=== PATIENT | male | born 1940 | race Caucasian/White ===

== ENCOUNTER 2017-04-03 07:53 | Emergency (ER) | payer OTHER ==
[2017-04-03 08:04] VITALS: BP 158/67
--- NOTE | 2017-04-03 08:22 | UC ---
General HPI - HPI Summary HPI Summary: BROUGHT TO BY . UNABLE TO GET OUT OF CAR WITHOUT ASSISTANCE. PT IN BATHROBE AND UNDERWEAR ONLY. PER HAS BEEN IN BED FOR THE PAST 2 DAYS. HAS NOT HAD ANYTHING TO EAT OR DRINK IN THAT TIME. FEVER 102 YESTERDAY. IS WEAK AND TIRED AND VOMITING. STARTED SELF CATHING LAST WEEK AND REPORTS NO URINE RETURN SINCE LAST NIGHT. - History of Current Complaint Chief Complaint: UCGeneralIllness Stated Complaint: VOMITING Time Seen by Provider: 04/03/17 08:13 Hx Obtained From: Patient, Family/Network Security Consultant - Onset/Duration: Gradual Onset, Lasting Days, Still Present Timing: Constant Onset Severity: Moderate Current Severity: Moderate Pain Intensity: 0 Associated Signs & Symptoms: Positive: Headache, Vomiting, Weakness - Allergy/Home Medications Allergies/Adverse Reactions: Allergies Allergy/AdvReac Type Severity Reaction Status Date / Time No Known Allergies Allergy Verified 04/03/17 08:11 Home Medications: Home Medications Clindamycin Phosphate (Topical [Clindagel] BID 04/03/17 [History] Cyanocobalamin INJ * [Vitamin B12 INJ *] 1,000 mcg 04/03/17 [History] Diclofenac Sodium EC TAB* [Voltaren EC TAB*] 50 mg PO TID 04/03/17 [History Confirmed 04/03/17] Ferrous Gluconate TAB* [Fergon TAB*] 1 tab PO DAILY 04/03/17 [History Confirmed 04/03/17] Fluocinonide 0.05% CREAM(NF) BID 04/03/17 [History] Fluoxetine HCl [Prozac] 40 mg PO DAILY 04/03/17 [History Confirmed 04/03/17] Lactic Acid (Ammonium Lactate) [Ammonium Lactate] BID 04/03/17 [History] PMH/Surg Hx/FS Hx/Imm Hx Cardiovascular History: Cardiac Disease, Hypertension Other History Of: Anticoagulant Therapy - PLAVIX - Surgical History Surgical History: Yes Surgery Procedure, Year, and Place: stent. knee - Family History Known Family History: Positive: Hypertension - Social History Alcohol Use: Daily Substance Use Type: None Smoking Status (MU): Never Smoked Tobacco Review of Systems Constitutional: Fever, Fatigue Respiratory: Negative Cardiovascular: Negative Gastrointestinal: Vomiting Motor: Weakness Neurological: Headache, Weakness All Other Systems Reviewed And Are Negative: Yes Physical Exam Triage Information Reviewed: Yes Appearance: No Pain Distress, Ill-Appearing - MOD/SEVERE Vital Signs: Initial Vital Signs Temp 101.5 F 04/03/17 08:01 Pulse 88 04/03/17 08:01 Resp 18 04/03/17 08:01 BP 158/67 04/03/17 08:01 Pulse Ox 99 04/03/17 08:01 Eyes: Positive: Conjunctiva Clear ENT: Positive: Hearing grossly normal Neck: Positive: Supple Respiratory: Positive: Lungs clear, No respiratory distress, No accessory muscle use Cardiovascular: Positive: RRR Musculoskeletal: Positive: No Edema Neurological: Positive: Lethargic - EASILY ROUSES TO VOICE Skin: Negative: rashes Course/Dx - Differential Dx - Multi-Symptom Provider Diagnoses: GENERALIZED WEAKNESS, FEVER - SUSPECT SEPSIS - Physician Notifications Discussed Patient Care With: Musa Cristobal - [facility] Time Discussed With Above Provider: 08:15 Instructed by Provider To: Will See In ED Discharge - Discharge Plan Condition: Stable Disposition: TRANS HIGHER LVL OF CARE FAC Referrals: Ata Neville MD [Primary Care Provider] -
[2017-04-03] MEDS ORDERED: NS 0.9% 1000 ML* 1,000 ML IV SCH (08:30)
== END 2017-04-03 08:21 | disposition short-term general hospital (02) ==
LOC: UCEAST 07:53
DX: R50.9 Fever, unspecified (principal); R53.1 Weakness; I10 Essential (primary) hypertension; I51.9 Heart disease, unspecified
CPT/HCPCS: 96360; 99213; G0463

== ENCOUNTER 2017-04-03 08:26 | Inpatient (IN) | payer MEDICARE, OTHER ==
[2017-04-03] MEDS ORDERED: cefTRIAXone(*) 1 GM in NS 0.9% 50 ML* 50 ML IVPB ONE (08:43)
--- NOTE | 2017-04-03 09:02 | RAD ---
HISTORY: Fever COMPARISONS: June 05, 2010 VIEWS: 1: frontal portable view of the chest at 8:50 AM FINDINGS: LINES AND TUBES: None. CARDIOMEDIASTINAL SILHOUETTE: The cardiomediastinal silhouette is normal for portable technique. PLEURA: The costophrenic angles are sharp. No pleural abnormalities are noted. LUNG PARENCHYMA: The lungs are clear. ABDOMEN: The upper abdomen is clear. There is no subphrenic gas. BONES AND SOFT TISSUES: No bone or soft tissue abnormalities are noted. IMPRESSION: NO ACTIVE CARDIOPULMONARY DISEASE.
[2017-04-03 09:39] LABS: Hematocrit 36 % (42-52); Hemoglobin 12.3 g/dl (14.0-18.0); Mean Corpuscular HGB Conc 35 g/dl (31-36); Mean Corpuscular Hemoglobin 30 pg (27-31); Mean Corpuscular Volume 87 fL (80-94); Mean Platelet Volume 9 um3 (7.4-10.4); Red Blood Count 4.11 10^6/ul (4.0-5.4); Red Cell Distribution Width 13 % (10.5-15); White Blood Count 13.2 10^3/ul (3.5-10.8)
[2017-04-03 09:51] LABS: Albumin 3.4 g/dL (3.2-5.2); BUN/Creatinine Ratio 16.5 (8-20); Calcium 8.2 mg/dL (8.6-10.3); EGFR African American 84.6 (>60); EGFR Non-African American 65.8 (>60); Potassium 3.2 mmol/L (3.5-5.0); Total Bilirubin 0.8 mg/dL (0.2-1.0); Total Protein 6.4 g/dL (6.4-8.9)
[2017-04-03 09:57] LABS: Troponin I 0.04 ng/mL (<0.04)
[2017-04-03 10:02] LABS: Urine Bacteria 1+ (Absent); Urine Bilirubin Negative (Negative); Urine Glucose Negative (Negative); Urine Nitrite Negative (Negative)
[2017-04-03] MEDS: NS 0.9% 1000 ML* 2,000 ML IV ONE ×2 (11:17→15:30)
[2017-04-03] MEDS ORDERED: LORazepam TAB(*) 0.5 MG PO PRN (11:45)
[2017-04-03] MEDS ORDERED: Potassium Chlor TAB* 20 MEQ TAB.ER PO ONE (11:57)
[2017-04-03] MEDS ORDERED: GENTAMICIN ADULT IVPB ONE ×5 (12:13→13:00)
[2017-04-03] MEDS ORDERED: NS 0.9% IVPB ONE ×5 (12:13→13:00)
[2017-04-03] MEDS: Acetaminophen TAB* 325 MG PO PRN ×2 (13:40→20:34)
[2017-04-03] MEDS: Carvedilol TAB* 6.25 MG PO SCH ×2 (14:05→20:29)
[2017-04-03] MEDS: Aspirin Low Dose CHEW TAB* 81 MG PO SCH (14:06)
[2017-04-03] MEDS ORDERED: Iohexol 300* (CONTRAST) 10 ML SDV IV ONE (15:04)
[2017-04-03] MEDS: NS 0.9% 1000 ML* 1,000 ML IV SCH ×2 (15:27→16:36)
--- NOTE | 2017-04-03 16:22 | HP ---
ATTENDING PHYSICIAN ADDENDUM NOW INCLUDED ON THIS REPORT CC: Dr. Ata Neville* HISTORY AND PHYSICAL: DATE OF ADMISSION: 04/03/17 PRIMARY CARE PROVIDER: Dr. Ata Neville. ATTENDING PHYSICIAN WHILE IN THE HOSPITAL: Jazmín Acharya MD * (report dictated by Franck Canchola NP) CHIEF COMPLAINT: 1. Weakness. 2. Nausea. 3. Not feeling well. HISTORY OF PRESENTING ILLNESS: Mr. Mccann is a 76-year-old male patient who came into the ER today stating that recently last week he was at his primary urologist's office in [place]. According to the patient's description, this sounded like he was having postvoid residuals. We will try to get the records from the office. He states he was told then to start straight cathing which he started, he has done this in the past. He went to a kindergarten class on Thursday and then he noticed Thursday, Thursday and of this week he just started not feeling well. He was having chills. He was having rigors. He was noticing that he was having to get up in the middle of the night and pee. He still continued to straight cath himself, and he also was complaining of having some nasal congestion, but no cough, no chest pain, no shortness of breath. He has said that his appetite has been down. He just has not been feeling good. He states that he has had again no chest pain or any coughing or shortness of breath. The patient went to the urgent care today, it was noted that he had a significantly elevated temperature of 102 and he was immediately transferred to the hospital for further evaluation. Here in the ED, it was noted that he had an elevated troponin and in addition to this, it was noted that his white count was elevated. It was noted that he had a mildly elevated troponin and his urine appeared to be dirty. Because of these findings, we were asked to evaluate for admission. PAST MEDICAL HISTORY: Significant for: 1. Hypertension. 2. Hyperlipidemia. 3. Depression. 4. Anxiety. 5. CAD. 6. BPH. 7. TIA. 8. History of CORBIN. PAST SURGICAL HISTORY: He has had knee arthroscopy. He has had deviated septum repair and he has had heart catheterization with o1 stent. HOME MEDICATIONS: According to the list that we were able to obtain includes: 1. Miconazole nitrate 2% topically b.i.d. 2. Ativan 0.25 mg p.o. b.i.d. as needed. 3. Wellbutrin 100 mg p.o. b.i.d. 4. Proscar 5 mg p.o. daily. 5. Colace 100 mg p.o. daily. 6. Flomax 0.8 mg p.o. daily. 7. Potassium 20 mEq p.o. daily. 8. Lisinopril plus hydrochlorothiazide 2 tablets p.o. b.i.d. 9. Prozac 40 mg daily. 10. Fluocinonide 1 application topically b.i.d. as needed. 11. Ferrous gluconate 325 mg p.o. daily. 12. Voltaren EC 50 mg p.o. t.i.d. as needed. 13. B12 1000 mcg IM monthly. 14. Vitamin D 2000 units p.o. daily. 15. Coreg 12.5 mg p.o. b.i.d. 16. Lipitor 40 mg p.o. daily. ALLERGIES TO MEDICATIONS: Include no known drug allergies. FAMILY HISTORY: Mother had a history of AAA. Father had a history of multiple myeloma. SOCIAL HISTORY: He is a former smoker, he quit in 1970. He occasionally drinks beer. Surrogate decision maker is his . REVIEW OF SYSTEMS: There is a documented fever here. He denied any weight change. There is no double vision. He denied having any ear discharge. There was no rhinorrhea. There is no sore throat. He does admit to having some nasal congestion. Denies any abdominal pain. He did admit to having some nausea and vomiting. He does admit to having difficulty with urination, but no dysuria. He has been straight cathing. He does admit to having some urgency. No lightheadedness. No loss of consciousness. No pruritus and no skin ulcerations. Review of 14 systems completed, all others negative. PHYSICAL EXAMINATION GENERAL: At this time, Mr. Mccann is a 76-year-old male patient. He appears to be well nourished, well developed. He is sitting in the ER stretcher. He does not appear to be in any acute distress. VITAL SIGNS: Blood pressure 146/70, pulse 77, respirations 22, O2 sat 94%, temperature 100.5. HEENT: Head atraumatic. Eyes: EOMs are intact. Sclerae anicteric. Not pale. Throat: Oral mucosa appears to be dry. No oropharyngeal erythema. NECK: Supple. HEART: Sounds S1, S2. Regular rate and rhythm. He does have a grade 2-3 murmur heard in the aortic listening area. ABDOMEN: Soft, flat, nontender. There is no CVA tenderness. He had bowel sounds in all 4 quadrants. EXTREMITIES: Pulses 2+ throughout. He had no peripheral edema. He is moving all 4 extremities with 5/5 strength. NEUROLOGIC: The patient is awake. He is alert. He is oriented x3. His market risk manager were equal. No gross focal deficits. SKIN: Intact. LABORATORY DATA: Labs today reveal WBC of 13.2, RBC 4.11, hemoglobin 12.3, hematocrit 36, platelet count of 126,000. INR 1.14. His sodium is 131, potassium 3.2, chloride 99, bicarb 24, BUN 18, creatinine 1.09, glucose 125, lactic 0.8, calcium 8.2, total bilirubin 0.8, AST 16, ALT 11, alk phos 46, troponin 0.04. Albumin 3.4. Urine showed 2+ protein, 2+ blood, positive urobilinogen, trace leukocyte esterase, 2+ WBC, 3+ RBC, and 1+ bacteria. He had a chest x-ray obtained today under my review, I did not appreciate any acute infiltrates. Radiology read it as no active cardiopulmonary disease. Interestingly, his EKG today did show normal sinus rhythm, he does have PVC's. He does have some very subtle depression in V4, 5 and 6, which is new compared to his previous EKG's. His last EKG is 7 years old. Old medical records were reviewed. ASSESSMENT AND PLAN: Mr. Mccann is a 76-year-old male patient with multiple medical problems coming into the ER today with complaints of weakness, found to have fever, found to have a white count and concern for sepsis. Hospitalist service was asked to evaluate for admission. He will be admitted under inpatient status for: 1. Sepsis. Again, source at this point most likely is urinary, could be viral still though, but with his UA being abnormal in the setting of him recent straight cathing, I would like to treat him with Rocephin IV and give him a loading dose of gentamicin. I did touch base with Urology, they recommended leaving his Bhatti catheter in until he completes his course of antibiotics and then having him follow up with his primary urologist. I am also concerned though on exam he does have a murmur. He has had some mitral sclerosis in the past. I asked the patient if he has been ever told he had a murmur, he said no. I would like to get blood cultures, if those are positive, then I would obviously get a ID consult, and I am already ordering an echo as well to see if there was any vegetations. My plan would be obviously to continue the Rocephin as I truly think that his primary source is probably urine. Check a flu swab as well, I am going to get a CT of the abdomen and pelvis to make sure that there is not any signs of pyelonephritis as well, and we will continue to hydrate him. He has gotten 2 L wide open down here, he has been ahmadi cultured and we will continue normal saline at 100 an hour. 2. Elevated troponin with ST depression. Again, the ST depression I do not know if it is new or not. It is probably in the setting of demand ischemia from the patient being septic. I am going to cycle his troponins, we are getting the echo. Obviously if the troponins continue to elevate, I will get input from Cardiology, but he is not having any active cardiac symptoms, no chest pain. I will put him on telemetry. He is on a beta-beronica, statin. I will add aspirin therapy and will continue to follow him closely. 3. History of coronary artery disease. Again, at this point he is on beta- beronica and start the aspirin and we will go ahead and continue the statin therapy and continue the beta-beronica. 4. Hypertension. We will go ahead and continue his meds as prescribed with the exception of his hydrochlorothiazide as this is probably causing the hypokalemia and mild hyponatremia and we will continue the lisinopril and we will follow. 5. Depression and anxiety. Continue meds as prescribed. 6. History of benign prostatic hypertrophy, continue his Flomax and Proscar. 7. History of transient ischemic attack. He is on a statin. I am also going to continue aspirin. 8. History of obstructive sleep apnea, I have ordered a CPAP. 9. DVT prophylaxis. He will be placed on heparin subcu. 10. Code status. He is a full code. 11. Fluids, electrolytes, nutrition. He can have a heart healthy diet. TIME SPENT: Time spent on this admission was approximately 70 minutes, greater than half the time spent face to face with patient, obtaining my history and physical, the other half time spent going over the plan of care with the patient , implementing plan of care. I discussed the plan of care with my attending, Dr. Acharya, she is in agreement. FRANCK CANCHOLA NP ADDENDUM: Mr. Mccann is a 76-year-old male with history of BPH who had been utilizing straight catheterization for urinary retention most likely due to enlarged prostate. He had been seeing a urologist in [place]. He presents today complaining of not feeling well with a fever of 102. He is going to be admitted for UTI. He also has a mildly indeterminate troponin of 0.04 and upper respiratory infection, for which flu test is going to be obtained. For further details of the patient's presentation and plan, please see history and physical dictated by Franck Canchola on 04/03/17 with which I agree. JAZMÍN ACHARYA MD [id number]/[facility] #: [id number]/CPS #: [id number] ELKE
--- NOTE | 2017-04-03 16:30 | HP ---
HISTORY AND PHYSICAL:* ADDENDUM: Mr. Mccann is a 76-year-old male with history of BPH who had been utilizing straight catheterization for urinary retention most likely due to enlarged prostate. He had been seeing a urologist in [place]. He presents today complaining of not feeling well with a fever of 102. He is going to be admitted for UTI. He also has a mildly indeterminate troponin of 0.04 and upper respiratory infection, for which flu test is going to be obtained. For further details of the patient's presentation and plan, please see history and physical dictated by Franck Canchola on 04/03/17 with which I agree. [id number]/[facility] #: [id number] MTDD
--- NOTE | 2017-04-03 16:48 | ECHO ---
Patient: NATHALIE BERNARD [facility] Rec#: [id number] : 1940 Date: 04/03/2017 Age: 76y Height: 175.26 cm / 69.0 in Weight: 75.3 kg / 166.0 lbs Sex: M BSA: 1.91 Room#: [facility] Admit Date#: 04/03/2017 Type: Inpatient Referring: Franck Canchola NP Reading: Ottoniel Thompson MD Quality Control Assistant: Heather Pena RDCS CC: Ata Neville MD Transthoracic Echocardiogram Indication: Murmur BP: 146/70 HR: 93 Rhythm: NSR with PVCs Findings History: HTN, HLD, smoker, TIA, CAD with stent. Technical Comments: The study quality is fair. The study is technically limited due to patient body habitus. Completed at 1545. Left Ventricle: The left ventricular chamber size is normal. Mild concentric left ventricular hypertrophy is observed. Global left ventricular wall motion and contractility are within normal limits. There is normal left ventricular systolic function. The estimated ejection fraction is 55-60%. Abnormal left ventricular diastolic filling is observed, consistent with impaired relaxation. Left Atrium: The left atrial chamber size is normal. Right Ventricle: Moderator Band present. The right ventricular cavity size is normal. The right ventricular global systolic function is normal. Right Atrium: The right atrium is mild to moderately dilated. Aortic Valve: The aortic valve is trileaflet. The aortic valve leaflets are moderately thickened. There is mild to moderate aortic regurgitation. There is borderline aortic stenosis present. Mitral Valve: There is mitral annular calcification. The mitral valve leaflets are moderately thickened. There is mild to moderate mitral regurgitation. Tricuspid Valve: The tricuspid valve leaflets are normal. There is trace to mild tricuspid regurgitation. The right ventricular systolic pressure is estimated at 29 mmHg. No pulmonary hypertension is noted. Pulmonic Valve: The pulmonic valve appears normal. There is no evidence of pulmonic regurgitation. There is no pulmonic stenosis. Pericardium: There is no significant pericardial effusion. Aorta: There is no dilatation of the ascending aorta. There is no dilatation of the aortic arch. The aortic root is normal in size. Pulmonary Artery: The main pulmonary artery appears normal. Venous: The inferior vena cava is dilated. There is an approximate 50% respiratory change in the inferior vena cava dimension. Conclusions There is normal left ventricular systolic function. The estimated ejection fraction is 55-60%. Global left ventricular wall motion and contractility are within normal limits. The left ventricular chamber size is normal. Mild concentric left ventricular hypertrophy is observed. Abnormal left ventricular diastolic filling is observed, consistent with impaired relaxation. The right atrium is mild to moderately dilated. There is mild to moderate aortic regurgitation. There is mild to moderate mitral regurgitation (MR). Since the prior echocardiogram completed 03/07/10, pertinent change is prior MR graded trace. Measurements Name Value Normal Range RVIDd (AP) 2D 3.7 cm (0.9 - 2.6) RVDdMajor (2D) 3.9 cm (2.2 - 4.4) RAd ISD 4CH 5.6 cm (3.4 - 4.9) RA (A4C)W 4.7 cm (2.9 - 4.6) IVSd (2D) 1.2 cm (0.6 - 1) LVPWd (2D) 1.2 cm (0.6 - 1) LVIDd (2D) 5.4 cm (3.6 - 5.4) LVIDs (2D) 3.4 cm - LV FS (2D) 36 % (25 - 45) Aortic Annulus 2.9 cm (1.4 - 2.6) Ao root diameter (2D) 3.3 cm (2.1 - 3.5) Ascending Ao 3.4 cm (2.1 - 3.4) Aortic arch 2.2 cm (1.8 - 3.4) LAd ISD 4CH 5.1 cm (2.9 - 5.3) LA ISD 4CH W 4.2 cm (2.5 - 4.5) Name Value Normal Range LA ESV SP 4CH (A/L) 72 ml - LA ESV SP 2CH (A/L) 52 ml - LA ESV BP (A/L) 65 ml - LA ESV BP (A/L) index 34 ml/m2 - LA ESV SP 4CH (MOD) 65 ml - LA ESV SP 2CH (MOD) 50 ml - Name Value Normal Range MV E-wave Vmax 0.79 m/sec - MV deceleration time 161.84 msec - MV A-wave Vmax 1.24 m/sec - MV E:A ratio 0.63 ratio - LV septal e' Vmax 0.04 m/sec - LV lateral e' Vmax 0.05 m/sec - LV E:e' septal ratio 19.75 ratio - LV E:e' lateral ratio 15.8 ratio - Name Value Normal Range AV Vmax 1.99 m/sec - AV VTI 38.56 cm - AV peak gradient 15.96 mmHg - AV mean gradient 10.03 mmHg - LVOT Vmax 0.99 m/sec - LVOT VTI 15.36 cm - LVOT peak gradient 3.96 mmHg - LVOT mean gradient 2.19 mmHg - DOI (VTI) 0.4 ratio - JA (continuity Vmax) 1.6 cm2 - AR PHT 450.6 msec - AR peak gradient 50.5 mmHg - CANDIS Vmax 0.73 m/sec - Name Value Normal Range TR Vmax 2.3 m/sec - TR peak gradient 21 mmHg - RAP 15 mmHg - RVSP 29 mmHg - IVC diameter 2.6 cm - Name Value Normal Range PV Vmax 0.72 m/sec - PV peak gradient 2.1 mmHg -
[2017-04-03] MEDS: Heparin VIAL(*) 5000 UNITS/ML VIAL (FIVE THOUSAND) SUBCUT SCH ×2 (17:49→20:28)
--- NOTE | 2017-04-03 18:28 | RAD ---
INDICATION: Nausea, sepsis, back pain. COMPARISON: There are no prior studies available for comparison. TECHNIQUE: A CT scan of the abdomen and pelvis was performed with intravenous and oral contrast following intravenous injection of 100 ml of Omnipaque 300 nonionic contrast. Contiguous axial sections were obtained from the lung bases through the symphysis pubis. Images were reconstructed in the coronal and sagittal planes. FINDINGS: The lung bases are clear. There is a trace left pleural effusion. The liver and spleen are mildly enlarged without significant focal abnormality. No calcified gallstones are seen. The pancreas appears to be within normal limits. The kidneys and adrenal glands are normal in size. There is prominent bilateral perinephric stranding. There is slightly heterogeneous enhancement of the kidneys. These findings are suggestive of pyelonephritis. No hydronephrosis is seen. There is a small cyst present in the upper pole of the right kidney measuring 1 cm in size. There is a Bhatti catheter within the urinary bladder. The wall of the urinary bladder is diffusely thickened suggestive of cystitis. The aorta is normal in caliber with mild calcific plaque present. No significant enlarged retroperitoneal lymph nodes are seen. The stomach, small and large bowel appear nondistended. The appendix is within normal limits. There is moderate sigmoid diverticulosis without evidence for diverticulitis. No free intraperitoneal air or fluid is seen. No significant focal osseous abnormality is seen. IMPRESSION: 1. TRACE LEFT PLEURAL EFFUSION. 2. FINDINGS SUSPICIOUS FOR CYSTITIS AND BILATERAL PYELONEPHRITIS. RECOMMEND CLINICAL CORRELATION. 3. MILD HEPATOSPLENOMEGALY.
--- NOTE | 2017-04-03 18:33 | ED ---
Eddie Allan Angela, scribed for Musa Cristobal MD on 04/03/17 at 0847 . HPI Febrile Illness - HPI Summary HPI Summary: This pt is a 76 y/o male accompanied by his [facility]/o fever and weakness x2 days. Pt notes that 3 days ago he began to have chills and didn' t feel well. For the last 2 days he has been in bed all day. Pt notes that he catherterized himself yesterday and was able to get some urine out. This morning the pt wasn't able to get urine out. Per , pt has had decreased PO fluids. He also endorses a headache today and pressure on his penis. - History of Current Complaint Chief Complaint: EDFever Time Seen by Provider: 04/03/17 08:38 Hx Obtained From: Patient, Family/[employer] - Onset/Duration: Started Days Ago Timing: Lasting Days Pain Intensity: 0 Associated Signs and Symptoms: Chills, Headache, Weakness - generalized, Other: - difficulty urinating - Allergy/Home Medications Allergies/Adverse Reactions: Allergies Allergy/AdvReac Type Severity Reaction Status Date / Time No Known Allergies Allergy Verified 04/03/17 08:38 Home Medications: Home Medications Carvedilol TAB* [Coreg TAB*] 12.5 mg PO BID 04/03/17 [History Confirmed 04/03/17 ] Cyanocobalamin INJ * [Vitamin B12 INJ *] 1,000 mcg IM MONTHLY 04/03/17 [History Confirmed 04/03/17] Diclofenac Sodium EC TAB* [Voltaren EC TAB*] 50 mg PO TID PRN 04/03/17 [History Confirmed 04/03/17] Docusate CAP* [Colace Cap*] 100 mg PO DAILY 04/03/17 [History Confirmed 04/03/17 ] FLUoxetine CAP* [PROzac CAP*] 40 mg PO DAILY 04/03/17 [History Confirmed ] Ferrous Gluconate TAB* [Fergon TAB*] 325 mg PO DAILY 04/03/17 [History Confirmed 04/03/17] Finasteride TAB* [Proscar TAB*] 5 mg PO DAILY 04/03/17 [History Confirmed ] Fluocinonide 0.05% CREAM(NF) 1 applic TOPICAL BID PRN 04/03/17 [History Confirmed 04/03/17] LORazepam TAB(*) [Ativan 0.5 MG TAB (*)] 0.25 mg PO BID PRN 04/03/17 [History Confirmed 04/03/17] Lisinopril/HCTZ 20/12.5(NF) [Zestoretic 20/12.5(NF)] 2 tab PO DAILY 04/03/17 [ History Confirmed 04/03/17] Miconazole Nitrate (Topical) [Micro Guard] 2 % TOPICAL BID 04/03/17 [History Confirmed 04/03/17] Potassium Chlor TAB* [Klor Con ER TAB*] 20 meq PO DAILY 04/03/17 [History Confirmed 04/03/17] buPROPion SR TAB* [Wellbutrin SR TAB*] 100 mg PO BID 04/03/17 [History Confirmed 04/03/17] PMH/Surg Hx/FS Hx/Imm Hx Endocrine/Hematology History: Reports: Hx Anticoagulant Therapy - PLAVIX Cardiovascular History: Reports: Hx Hypertension Respiratory History: Denies: Hx Asthma - Surgical History Surgery Procedure, Year, and Place: stent. knee Infectious Disease History: No Infectious Disease History: Denies: Traveled Outside the [place] in Last 30 Days - Family History Known Family History: Positive: Hypertension - Social History Alcohol Use: Daily Substance Use Type: Reports: None Smoking Status (MU): Never Smoked Tobacco Review of Systems Positive: Fever, Chills Eyes: Negative ENT: Negative Negative: Chest Pain Negative: Shortness Of Breath, Cough Negative: Abdominal Pain Positive: other - difficulty urinating Skin: Negative Positive: Headache All Other Systems Reviewed And Are Negative: Yes Physical Exam - Summary Physical Exam Summary: VITAL SIGNS: Reviewed. GENERAL: Patient is a well-developed and nourished male who is lying comfortable in the stretcher. Patient is not in any acute respiratory distress. HEAD AND FACE: No signs of trauma. ~No ecchymosis, hematomas or skull depressions. No sinus tenderness. EYES: PERRLA, EOMI x 2, No injected conjunctiva, no nystagmus. EARS: Hearing grossly intact. Ear canals and tympanic membranes are within normal limits. MOUTH: Oropharynx within normal limits. NECK: Supple, trachea is midline, no adenopathy, no JVD, no carotid bruit, no c- spine tenderness, neck with full ROM. CHEST: Symmetric, no tenderness at palpation LUNGS: Clear to auscultation bilaterally. No wheezing or crackles. CVS: Regular rate and rhythm, S1 and S2 present, no murmurs or gallops appreciated. ABDOMEN: Soft, non-tender. No signs of distention. No rebound no guarding, and no masses palpated. Bowel sounds are normal. EXTREMITIES: FROM in all major joints, no edema, no cyanosis or clubbing. NEURO: Alert and oriented x 3. No acute neurological deficits. Speech is normal and follows commands. SKIN: Dry and warm Triage Information Reviewed: Yes Vital Signs On Initial Exam: Initial Vitals Temp Pulse Resp BP Pulse Ox 101.2 F 85 20 160/81 93 04/03/17 08:36 04/03/17 08:36 04/03/17 08:36 04/03/17 08:36 04/03/17 08:36 Vital Signs Reviewed: Yes Diagnostics - Vital Signs Vital Signs Temp Pulse Resp BP Pulse Ox 04/03/17 08:36 101.2 F 85 20 160/81 93 - Laboratory Result Diagrams: 04/03/17 09:10 04/03/17 09:10 Lab Statement: Any lab studies that have been ordered have been reviewed, and results considered in the medical decision making process. - Radiology Chest XR Xray Interpretation: No Acute Changes - IMPRESSIOn: No active cardiopulmonary disease. ED physician has reviewed this radiology report and agrees. Radiology Interpretation Completed By: Radiologist - EKG 1133 Cardiac Rate: NL - 80 bpm EKG Rhythm: Sinus Rhythm Ectopy: PVCs - multiple EKG Interpretation: ST depression in V4, V5, and V6. Course/Dx - Course Assessment/Plan: This pt is a 76 y/o male accompanied by his [facility]/o fever and weakness x2 days. Pt notes that 3 days ago he began to have chills and didn't feel well. For the last 2 days he has been in bed all day. Pt notes that he catherterized himself yesterday and was able to get some urine out. This morning the pt wasn't able to get urine out. Per , pt has had decreased PO fluids. He also endorses a headache today and pressure on his penis. Test results show WBC of 13.2, platelets of 126, without any bands. Sodium is 121, potassium is 3.2, calcium is 8.2, troponin is 0.04. UA is positive for protein, ketones, WBC, and bacteria. Chest XR is negative for an acute pathology. I believe the symptoms are secondary to UTI/sepsis. In the ED course, the pt was given IV fluids and Rocephin to cover for a UTI. Pt denied chest pain, however troponin is elevated. He took his medications this morning including aspirin. I discussed my physical exam findings and results with Dr. Acharya, who accepted the pt for admission. At this point, the pt is hemodynamically stable, alert and oriented x3. - Diagnoses Provider Diagnoses: UTI/sepsis - Provider Notifications Discussed Care Of Patient With: Jazmín Acharya Instructed by Provider To: Other - I discussed the pt's case with Dr. Acharya, who accepted the pt for admission. Discharge - Discharge Plan Condition: Stable Disposition: ADMITTED TO [facility] The documentation as recorded by the Eddie olivier Angela accurately reflects the service I personally performed and the decisions made by me, Musa Cristobal MD.
[2017-04-03] MEDS: Cefepime(*) 2 GM in NS 0.9% 50 ML* 50 ML IVPB SCH (20:03)
[2017-04-03] MEDS: buPROPion SR TAB.SR* 100 MG PO SCH (20:29)
[2017-04-03] MEDS: Ondansetron INJ* 2 MG/ML VIAL IV PRN (20:34)
[2017-04-04] MEDS: Acetaminophen TAB* 325 MG PO PRN ×3 (04:34→20:27)
[2017-04-04] MEDS: Heparin VIAL(*) 5000 UNITS/ML VIAL (FIVE THOUSAND) SUBCUT SCH ×3 (04:34→20:27)
[2017-04-04 05:42] LABS: Hematocrit 33 % (42-52); Hemoglobin 11.5 g/dl (14.0-18.0); Mean Corpuscular HGB Conc 35 g/dl (31-36); Mean Corpuscular Hemoglobin 30 pg (27-31); Mean Corpuscular Volume 86 fL (80-94); Mean Platelet Volume 9 um3 (7.4-10.4); Red Blood Count 3.84 10^6/ul (4.0-5.4); Red Cell Distribution Width 13 % (10.5-15); White Blood Count 11.6 10^3/ul (3.5-10.8)
[2017-04-04 05:45] LABS: Add Diff/Slide Review? Slide Review Added; Comments Flag Yes
[2017-04-04 05:58] LABS: Calcium 7.9 mg/dL (8.6-10.3); EGFR African American 75.7 (>60); EGFR Non-African American 58.9 (>60); Potassium 3.1 mmol/L (3.5-5.0)
[2017-04-04 06:09] LABS: Troponin I 0.07 ng/mL (<0.04)
[2017-04-04] MEDS ORDERED: Potassium Chlor TAB* 20 MEQ TAB.ER PO ONE (07:45)
[2017-04-04] MEDS ORDERED: Lisinopril TAB* 10 MG PO SCH (09:00)
[2017-04-04] MEDS ORDERED: cefTRIAXone VIAL(*) 1,000 MG in NS 0.9% 50 ML* 50 ML IVPB SCH (09:00)
[2017-04-04] MEDS: Cefepime(*) 2 GM in NS 0.9% 50 ML* 50 ML IVPB SCH ×2 (09:12→20:27)
[2017-04-04] MEDS: Ferrous Gluconate TAB* 324 MG TAB PO SCH (09:21)
[2017-04-04] MEDS: Aspirin Low Dose CHEW TAB* 81 MG PO SCH (09:21)
[2017-04-04] MEDS: Atorvastatin* 40 MG TAB PO SCH (09:21)
[2017-04-04] MEDS: Tamsulosin CAP* 0.4 MG PO SCH (09:22)
[2017-04-04] MEDS: FLUoxetine CAP* 20 MG PO SCH (09:22)
[2017-04-04] MEDS: Docusate CAP* 100 MG PO SCH ×2 (09:22→09:41)
[2017-04-04] MEDS: Finasteride TAB* 5 MG PO SCH (09:23)
[2017-04-04] MEDS: buPROPion SR TAB.SR* 100 MG PO SCH ×2 (09:23→20:27)
--- NOTE | 2017-04-04 10:49 | PN ---
Subjective Date of Service: 04/04/17 Interval History: Pt feels much better. Fever and aches resolved Objective Active Medications: Acetaminophen (Tylenol Tab*) 650 mg PO Q4H PRN PRN Reason: FEVER/PAIN Last Admin: 04/04/17 04:34 Dose: 650 mg Aspirin (Aspirin Low Dose Tab*) 81 mg PO DAILY [facility] Last Admin: 04/04/17 09:21 Dose: 81 mg Atorvastatin Calcium (Lipitor*) 40 mg PO DAILY [facility] Last Admin: 04/04/17 09:21 Dose: 40 mg Bupropion HCl (Wellbutrin Sr Tab*) 100 mg PO BID [facility] Last Admin: 04/04/17 09:23 Dose: 100 mg Carvedilol (Coreg Tab*) 12.5 mg PO BID [facility] Last Admin: 04/03/17 20:29 Dose: 12.5 mg Docusate Sodium (Colace Cap*) 100 mg PO DAILY [facility] Last Admin: 04/04/17 09:41 Dose: Not Given Ferrous Gluconate (Fergon Tab*) 325 mg PO DAILY [facility] Last Admin: 04/04/17 09:21 Dose: 325 mg Finasteride (Proscar Tab*) 5 mg PO DAILY [facility] Last Admin: 04/04/17 09:23 Dose: 5 mg Fluoxetine HCl (Prozac Cap*) 40 mg PO DAILY [facility] Last Admin: 04/04/17 09:22 Dose: 40 mg Heparin Sodium (Porcine) (Heparin Vial(*)) 5,000 units SUBCUT Q8HR [facility] Last Admin: 04/04/17 04:34 Dose: 5,000 units Cefepime HCl 2 gm/ Sodium (Chloride) 50 mls @ 100 mls/hr IVPB Q12H [facility] Last Admin: 04/04/17 09:12 Dose: 100 mls/hr Lorazepam (Ativan Tab(*)) 0.25 mg PO BID PRN PRN Reason: ANXIETY Ondansetron HCl (Zofran Inj*) 4 mg IV Q6H PRN PRN Reason: NAUSEA Last Admin: 04/03/17 20:34 Dose: 4 mg Potassium Chloride (Klor Con Er Tab*) 20 meq PO DAILY [facility] Tamsulosin HCl (Flomax Cap*) 0.8 mg PO DAILY [facility] Last Admin: 04/04/17 09:22 Dose: 0.8 mg Vital Signs 04/03/17 04/03/17 04/03/17 13:40 16:09 18:32 Temperature 101.9 F 98.0 F 99.9 F Pulse Rate 97 82 80 Respiratory 20 18 20 Rate Blood Pressure 179/84 134/60 149/62 (mmHg) O2 Sat by Pulse 98 95 98 Oximetry 04/03/17 04/03/17 04/03/17 20:00 20:01 23:46 Temperature 102.3 F 98.6 F Pulse Rate 86 65 Respiratory 16 18 16 Rate Blood Pressure 150/65 106/49 (mmHg) O2 Sat by Pulse 98 98 96 Oximetry 04/04/17 04/04/17 04/04/17 04:14 07:39 07:49 Temperature 102.8 F 98.2 F Pulse Rate 81 66 Respiratory 16 20 Rate Blood Pressure 146/66 119/56 (mmHg) O2 Sat by Pulse 97 97 97 Oximetry Oxygen Devices in Use Now: None Appearance: 76 yo M in NAD, AAOx3 Eyes: No Scleral Icterus, PERRLA Ears/Nose/Mouth/Throat: NL Teeth, Lips, Gums, Mucous Membranes Moist Neck: NL Appearance and Movements; NL JVP, Trachea Midline Respiratory: Symmetrical Chest Expansion and Respiratory Effort, Clear to Auscultation Cardiovascular: RRR, - - BLOSSOM at apex 2/6 Abdominal: NL Sounds; No Tenderness; No Distention, No Hepatosplenomegaly Lymphatic: No Cervical Adenopathy Extremities: No Edema, No Clubbing, Cyanosis Skin: No Rash or Ulcers Neurological: Alert and Oriented x 3, NL Muscle Strength and Tone Result Diagrams: 04/04/17 05:26 04/04/17 05:26 Microbiology and Other Data: Microbiology 04/04/17 04:50 Influenza Types A,B Antigen (EMELINA) - Final Nasal Specimen received for Influenza A/B Molecular testing Assess/Plan/Problems-Billing Assessment: 76 yo M with h/o BPH(straight caths), HTN, dyslipidemia presets with UTI and sepsis - Patient Problems (1) Sepsis Comment: present at admission due to b/l pyelonephritis and cystitis Rodriguez in place-d/w pt the need to cont rodriguez at discharge cont Cefepime Awaiting cx (2) HTN (hypertension) Comment: conteolled with Coreg HCTZ/Lisinopril on hold (3) ROSSI (acute kidney injury) Comment: creat at 1.2 -due to sepsis will cont to monitor (4) Mitral regurgitation Comment: moderate on Echo, d/w pt the need for Echo f/u (5) Troponin level elevated Comment: demand due to sepsis no arrythmia noted on telem, will d/c (6) Dyslipidemia Comment: cont lipitor (7) DVT prophylaxis Comment: heparin sc Status and Disposition: inpatient, expected length of stay total>48H
[2017-04-04] MEDS: Carvedilol TAB* 6.25 MG PO SCH ×2 (11:12→20:27)
[2017-04-04] MEDS: Potassium Chlor TAB* 20 MEQ TAB.ER PO SCH (11:12)
[2017-04-04] MEDS: Ondansetron INJ* 2 MG/ML VIAL IV PRN (15:03)
[2017-04-05] MEDS: Acetaminophen TAB* 325 MG PO PRN ×3 (03:35→21:45)
[2017-04-05] MEDS: Heparin VIAL(*) 5000 UNITS/ML VIAL (FIVE THOUSAND) SUBCUT SCH ×3 (05:14→21:49)
[2017-04-05 05:31] LABS: Hematocrit 32 % (42-52); Hemoglobin 11.2 g/dl (14.0-18.0); Mean Corpuscular HGB Conc 35 g/dl (31-36); Mean Corpuscular Hemoglobin 30 pg (27-31); Mean Corpuscular Volume 87 fL (80-94); Mean Platelet Volume 9 um3 (7.4-10.4); Red Blood Count 3.73 10^6/ul (4.0-5.4); Red Cell Distribution Width 13 % (10.5-15); White Blood Count 9.4 10^3/ul (3.5-10.8)
[2017-04-05 05:41] LABS: BUN/Creatinine Ratio 18.1 (8-20); Calcium 8.2 mg/dL (8.6-10.3); EGFR African American 78.7 (>60); EGFR Non-African American 61.2 (>60); Potassium 3.1 mmol/L (3.5-5.0)
[2017-04-05] MEDS ORDERED: Potassium Chlor TAB* 20 MEQ TAB.ER PO ONE (09:07)
[2017-04-05] MEDS: Aspirin Low Dose CHEW TAB* 81 MG PO SCH (09:49)
[2017-04-05] MEDS: Atorvastatin* 40 MG TAB PO SCH (09:49)
[2017-04-05] MEDS: Tamsulosin CAP* 0.4 MG PO SCH (09:50)
[2017-04-05] MEDS: Docusate CAP* 100 MG PO SCH (09:50)
[2017-04-05] MEDS: Ferrous Gluconate TAB* 324 MG TAB PO SCH (09:50)
[2017-04-05] MEDS: Carvedilol TAB* 6.25 MG PO SCH ×2 (09:50→21:46)
[2017-04-05] MEDS: Finasteride TAB* 5 MG PO SCH (09:52)
[2017-04-05] MEDS: FLUoxetine CAP* 20 MG PO SCH (09:52)
[2017-04-05] MEDS: Potassium Chlor TAB* 20 MEQ TAB.ER PO SCH (09:53)
[2017-04-05] MEDS ORDERED: Amoxicillin/Clavulanate TAB* 875 MG PO SCH (10:00)
[2017-04-05] MEDS ORDERED: Ibuprofen TAB* 600 MG PO ONE (10:26)
[2017-04-05] MEDS: buPROPion SR TAB.SR* 100 MG PO SCH ×2 (10:27→21:47)
--- NOTE | 2017-04-05 14:56 | PN ---
Subjective Date of Service: 04/05/17 Interval History: Temp of >102 today in AM, feels generalized weakness Objective Active Medications: Acetaminophen (Tylenol Tab*) 650 mg PO Q4H PRN PRN Reason: FEVER/PAIN Last Admin: 04/05/17 09:58 Dose: 650 mg Aspirin (Aspirin Low Dose Tab*) 81 mg PO DAILY [facility] Last Admin: 04/05/17 09:49 Dose: 81 mg Atorvastatin Calcium (Lipitor*) 40 mg PO DAILY [facility] Last Admin: 04/05/17 09:49 Dose: 40 mg Bupropion HCl (Wellbutrin Sr Tab*) 100 mg PO BID [facility] Last Admin: 04/05/17 10:27 Dose: 100 mg Carvedilol (Coreg Tab*) 12.5 mg PO BID [facility] Last Admin: 04/05/17 09:50 Dose: 12.5 mg Docusate Sodium (Colace Cap*) 100 mg PO DAILY [facility] Last Admin: 04/05/17 09:50 Dose: 100 mg Ferrous Gluconate (Fergon Tab*) 325 mg PO DAILY [facility] Last Admin: 04/05/17 09:50 Dose: 325 mg Finasteride (Proscar Tab*) 5 mg PO DAILY [facility] Last Admin: 04/05/17 09:52 Dose: 5 mg Fluoxetine HCl (Prozac Cap*) 40 mg PO DAILY [facility] Last Admin: 04/05/17 09:52 Dose: 40 mg Heparin Sodium (Porcine) (Heparin Vial(*)) 5,000 units SUBCUT Q8HR [facility] Last Admin: 04/05/17 13:14 Dose: 5,000 units Ampicillin Sodium 2 gm/ Sodium (Chloride) 100 mls @ 200 mls/hr IVPB Q6H [facility] Last Admin: 04/05/17 10:50 Dose: 200 mls/hr Lorazepam (Ativan Tab(*)) 0.25 mg PO BID PRN PRN Reason: ANXIETY Ondansetron HCl (Zofran Inj*) 4 mg IV Q6H PRN PRN Reason: NAUSEA Last Admin: 04/04/17 15:03 Dose: 4 mg Potassium Chloride (Klor Con Er Tab*) 20 meq PO DAILY [facility] Last Admin: 04/05/17 09:53 Dose: 20 meq Tamsulosin HCl (Flomax Cap*) 0.8 mg PO DAILY [facility] Last Admin: 04/05/17 09:50 Dose: 0.8 mg Vital Signs 04/04/17 04/04/17 04/04/17 15:09 19:00 20:00 Temperature 101.2 F Pulse Rate 75 Respiratory 20 20 Rate Blood Pressure 139/62 (mmHg) O2 Sat by Pulse 100 98 Oximetry 04/04/17 04/04/17 04/05/17 20:19 23:23 03:47 Temperature 98.8 F 98.5 F 100.0 F Pulse Rate 63 59 71 Respiratory 20 20 22 Rate Blood Pressure 117/62 144/61 (mmHg) O2 Sat by Pulse 98 97 97 Oximetry 04/05/17 04/05/17 03:54 07:41 Temperature 98.7 F Pulse Rate 69 62 Respiratory 16 Rate Blood Pressure 143/65 140/67 (mmHg) O2 Sat by Pulse 98 Oximetry Oxygen Devices in Use Now: None Appearance: 76 yo M in nAD, aAOx3 Eyes: No Scleral Icterus, PERRLA Ears/Nose/Mouth/Throat: NL Teeth, Lips, Gums, Mucous Membranes Moist Neck: NL Appearance and Movements; NL JVP, Trachea Midline Respiratory: Symmetrical Chest Expansion and Respiratory Effort, Clear to Auscultation Cardiovascular: NL Sounds; No Murmurs; No JVD, RRR Abdominal: NL Sounds; No Tenderness; No Distention Lymphatic: No Cervical Adenopathy Extremities: No Edema, No Clubbing, Cyanosis Skin: No Rash or Ulcers, No Nodules or Sclerosis Neurological: Alert and Oriented x 3, NL Muscle Strength and Tone Result Diagrams: 04/05/17 05:10 04/05/17 05:10 Microbiology and Other Data: Microbiology 04/04/17 04:50 Influenza Types A,B Antigen (EMELINA) - Final Nasal Specimen received for Influenza A/B Molecular testing Assess/Plan/Problems-Billing Assessment: 76 yo M with h/o BPH(straight caths), HTN, dyslipidemia presets with UTI and sepsis - Patient Problems (1) Sepsis Comment: present at admission due to b/l pyelonephritis and cystitis Rodriguez in place-d/w pt the need to cont rodriguez at discharge Cx positive for E. faecalis. will stop Cefepime and start Ampicillin Blood cx NTD (2) HTN (hypertension) Comment: ucontrolled with Coreg restarting HCTZ, Lisinopril on hold (3) ROSSI (acute kidney injury) Comment: creat at 1.2 -due to sepsis improving (4) Mitral regurgitation Comment: moderate on Echo, d/w pt the need for Echo f/u as outpatient (5) Troponin level elevated Comment: demand due to sepsis telem d/c'd (6) Dyslipidemia Comment: cont lipitor (7) DVT prophylaxis Comment: heparin sc Status and Disposition: inpatient, expected length of stay total>48H
[2017-04-05] MEDS: Hydrochlorothiazide TAB* 25 MG PO SCH (15:09)
[2017-04-06] MEDS: Acetaminophen TAB* 325 MG PO PRN ×2 (02:06→08:39)
[2017-04-06] MEDS: Cefepime(*) 2 GM in NS 0.9% 50 ML* 50 ML IVPB SCH (03:28)
[2017-04-06] MEDS: Heparin VIAL(*) 5000 UNITS/ML VIAL (FIVE THOUSAND) SUBCUT SCH ×3 (05:15→21:33)
[2017-04-06] MEDS: Docusate CAP* 100 MG PO SCH (09:21)
[2017-04-06] MEDS: Atorvastatin* 40 MG TAB PO SCH (09:21)
[2017-04-06] MEDS: Potassium Chlor TAB* 20 MEQ TAB.ER PO SCH (09:21)
[2017-04-06] MEDS: Aspirin Low Dose CHEW TAB* 81 MG PO SCH (09:21)
[2017-04-06] MEDS: Ferrous Gluconate TAB* 324 MG TAB PO SCH (09:22)
[2017-04-06] MEDS: buPROPion SR TAB.SR* 100 MG PO SCH ×2 (09:22→21:33)
[2017-04-06] MEDS: Carvedilol TAB* 6.25 MG PO SCH ×2 (09:22→21:32)
[2017-04-06] MEDS: Tamsulosin CAP* 0.4 MG PO SCH (09:23)
[2017-04-06] MEDS: Hydrochlorothiazide TAB* 25 MG PO SCH (09:23)
[2017-04-06] MEDS: FLUoxetine CAP* 20 MG PO SCH (09:23)
[2017-04-06] MEDS: Finasteride TAB* 5 MG PO SCH (09:23)
[2017-04-06] MEDS: Levofloxacin 500 MG IVPREMIX(* 500 MG/100 ML BAG IVPB SCH (13:17)
--- NOTE | 2017-04-06 15:06 | PN ---
Subjective Date of Service: 04/06/17 Interval History: Pt feels poorly: tired, poor appetite, no pain Objective Active Medications: Acetaminophen (Tylenol Tab*) 650 mg PO Q4H PRN PRN Reason: FEVER/PAIN Last Admin: 04/06/17 08:39 Dose: 650 mg Aspirin (Aspirin Low Dose Tab*) 81 mg PO DAILY [facility] Last Admin: 04/06/17 09:21 Dose: 81 mg Atorvastatin Calcium (Lipitor*) 40 mg PO DAILY [facility] Last Admin: 04/06/17 09:21 Dose: 40 mg Bupropion HCl (Wellbutrin Sr Tab*) 100 mg PO BID [facility] Last Admin: 04/06/17 09:22 Dose: 100 mg Carvedilol (Coreg Tab*) 12.5 mg PO BID [facility] Last Admin: 04/06/17 09:22 Dose: 12.5 mg Docusate Sodium (Colace Cap*) 100 mg PO DAILY [facility] Last Admin: 04/06/17 09:21 Dose: 100 mg Ferrous Gluconate (Fergon Tab*) 325 mg PO DAILY [facility] Last Admin: 04/06/17 09:22 Dose: 325 mg Finasteride (Proscar Tab*) 5 mg PO DAILY [facility] Last Admin: 04/06/17 09:23 Dose: 5 mg Fluoxetine HCl (Prozac Cap*) 40 mg PO DAILY [facility] Last Admin: 04/06/17 09:23 Dose: 40 mg Heparin Sodium (Porcine) (Heparin Vial(*)) 5,000 units SUBCUT Q8HR [facility] Last Admin: 04/06/17 13:18 Dose: 5,000 units Hydrochlorothiazide (Hydrodiuril Tab*) 25 mg PO DAILY [facility] Last Admin: 04/06/17 09:23 Dose: 25 mg Levofloxacin/Dextrose (Levaquin 500 Mg Ivpremix(*)) 500 mg in 100 mls @ 100 mls /hr IVPB Q24H [facility] Last Admin: 04/06/17 13:17 Dose: 100 mls/hr Lorazepam (Ativan Tab(*)) 0.25 mg PO BID PRN PRN Reason: ANXIETY Potassium Chloride (Klor Con Er Tab*) 20 meq PO DAILY [facility] Last Admin: 04/06/17 09:21 Dose: 20 meq Tamsulosin HCl (Flomax Cap*) 0.8 mg PO DAILY [facility] Last Admin: 04/06/17 09:23 Dose: 0.8 mg Vital Signs 04/05/17 04/05/17 04/05/17 16:08 20:00 20:13 Temperature 98.2 F 98.2 F Pulse Rate 59 71 Respiratory 16 16 16 Rate Blood Pressure 134/65 138/68 (mmHg) O2 Sat by Pulse 97 98 98 Oximetry 04/05/17 04/05/17 04/06/17 21:42 23:33 01:44 Temperature 99.4 F 98.4 F Pulse Rate 64 Respiratory 16 Rate Blood Pressure 143/69 (mmHg) O2 Sat by Pulse 96 97 Oximetry 04/06/17 04/06/17 04/06/17 01:46 03:49 07:18 Temperature 99.0 F 98.4 F 99.3 F Pulse Rate 62 70 Respiratory 16 16 20 Rate Blood Pressure 152/74 159/77 (mmHg) O2 Sat by Pulse 97 97 Oximetry Oxygen Devices in Use Now: None Appearance: 76 yo M in nAD, AAOx3 Eyes: No Scleral Icterus, PERRLA Ears/Nose/Mouth/Throat: NL Teeth, Lips, Gums, Mucous Membranes Moist Neck: NL Appearance and Movements; NL JVP, Trachea Midline Respiratory: Symmetrical Chest Expansion and Respiratory Effort, Clear to Auscultation Cardiovascular: NL Sounds; No Murmurs; No JVD, RRR Abdominal: NL Sounds; No Tenderness; No Distention, No Hepatosplenomegaly Lymphatic: No Cervical Adenopathy Extremities: No Edema, No Clubbing, Cyanosis Skin: No Rash or Ulcers, No Nodules or Sclerosis Neurological: Alert and Oriented x 3, NL Muscle Strength and Tone Result Diagrams: 04/05/17 05:10 04/05/17 05:10 Microbiology and Other Data: Microbiology 04/04/17 04:50 Influenza Types A,B Antigen (EMELINA) - Final Nasal Specimen received for Influenza A/B Molecular testing Assess/Plan/Problems-Billing Assessment: 76 yo M with h/o BPH(straight caths), HTN, dyslipidemia presets with UTI and sepsis - Patient Problems (1) Sepsis Comment: present at admission due to b/l pyelonephritis and cystitis Rodriguez in place-d/w pt the need to cont rodriguez at discharge Cx positive for E. faecalis. appreciate ID consult. Will switch ampicillin to Levaquin. Pt can cont Levaquin PO at d/c for 2 weeks total (script given to to send to [place] for authorization) Blood cx NTD (2) Urinary retention Comment: due to BPH [facility] [place] Rodriguez was placed in ED(prior to that pt was using straight cath) Pt understands to he will be d/c'd with rodriguez in place to see his urologist as outpatient RN teaching re: Rodriguez bag care ordered (3) HTN (hypertension) Comment: ucontrolled with Coreg/HCTZ adding back Lisinopril (4) ROSSI (acute kidney injury) Comment: creat at 1.2 -due to sepsis improving (5) Mitral regurgitation Comment: moderate on Echo, d/w pt the need for Echo f/u as outpatient (6) Troponin level elevated Comment: demand due to sepsis telem d/c'd (7) Dyslipidemia Comment: cont lipitor (8) DVT prophylaxis Comment: heparin sc Status and Disposition: inpatient, expected length of stay total>48H Possible d/c in aM
--- NOTE | 2017-04-06 16:44 | CONS ---
CONSULTATION REPORT: DATE OF CONSULT: 04/06/17. REQUESTING PHYSICIAN: Dr. Acharya. CONSULTING SERVICE: Infectious Disease. REASON FOR CONSULT: Enterococcal urinary tract infection. IMPRESSION: 1. Sepsis present on admission, resolved. 2. Enterococcus faecalis, acute prostatitis, cystitis, bilateral pyelonephritis , acute urinary retention due to infection, underlying hypertrophy of the prostate. 3. Non-ST elevation OR. RECOMMENDATIONS: Agree with outpatient Levaquin 500 mg daily, which he will take for another 4 weeks, explained to the patient, his and daughter that they could expect a couple of more days of intermittent fever, but that he is overall seems much better. Last night, his fever appears to have been low grade. He will have this Bhatti managed by his outpatient urologist at the [facility] and he will continue on finasteride and tamsulosin. HISTORY OF PRESENT ILLNESS: This is a 76-year-old male with benign prostatic hypertrophy, admitted with urinary retention. Follows with Urology in [facility]. He was seen there a couple of weeks ago. Earlier in the week, he had malaise, chills, started to have rigors, more frequently up in the night to urinate. He had been straight cathing at that point because of elevated postvoid residuals. He had decreased appetite, worsening chills and a temperature of 102. So he came to the ER on the . His white blood cell is 13,000, he is febrile at 39 degrees. He was tachycardic. He had volume resuscitation and was started on vancomycin, ceftriaxone. Blood cultures have come back negative. Urine cultures greater than 100,000 colonies of Enterococcus faecalis sensitive to amp and Levaquin. He was changed from vanco and ceftriaxone to ampicillin, which is continued on until today. He has had occasional sweats, chills and fever at night, but less intense than on a first couple of nights here. His energy is improving and his appetite is good. He has a Bhatti placed with clear urine draining. PAST MEDICAL HISTORY: 1. Coronary artery disease with history of PCI. 2. Benign prostatic hypertrophy. 3. Hypertension. 4. Hyperlipidemia. 5. Depression. 6. Anxiety. 7. TIA. 8. Obstructive sleep apnea. 9. Status post knee arthroscopy. 10. Status post nasal septum repair. MEDICATIONS: 1. Tylenol. 2. Aspirin. 3. Lipitor. 4. Coreg. 5. Docusate. 6. Fluoxetine. 7. Iron. 8. Finasteride. 9. Heparin subcutaneous injection. 10. Hydrochlorothiazide. 11. Lorazepam as needed. 12. Levaquin 500 mg daily. 13. Bupropion. 14. Tamsulosin. ALLERGIES: No known drug allergies. FAMILY HISTORY: Mother with abdominal aneurysm. Father had myeloma. SOCIAL HISTORY: Lives in [place] with . 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 He has no travel or sick contact. Past smoker. REVIEW OF SYSTEMS: A 14-point review of systems was all negative except as noted above. PHYSICAL EXAM: Vital Signs: Temperature 37.4, heart rate 70, respiratory rate 20, blood pressure 160/70, O2 sat 97% on room air. General: He is awake, and not in distress. Neurologic: He is oriented x3. Follows all commands. Moves all extremities. HEENT: There is no conjunctival hemorrhage. Oropharynx without lesions. Neck: Supple. Lymph nodes: There is no inguinal, axillary or epitrochlear lymphadenopathy. Heart: Regular rate and rhythm. No murmurs, rubs or gallops. Lungs: Clear to auscultation bilaterally. Abdomen: Soft, nontender, nondistended. Bowel sounds present. There is no suprapubic or flank tenderness to palpation. Skin: There is no rash or splinter hemorrhages. Musculoskeletal: No spine tenderness to palpation. DIAGNOSTIC STUDIES/LAB DATA: White blood cell count 9, hemoglobin 11, platelets 124. Creatinine 1.1. Troponin 0.07. Please see the impressions and recommendation outlined above, which I have discussed with Dr. Acharya. Thank you for asking me to see Mr. Mccann in consultation. [id number]/[facility] #: [id number] [facility]
[2017-04-06] MEDS: Lisinopril TAB* 10 MG PO SCH (17:12)
[2017-04-07 04:54] LABS: Hematocrit 33 % (42-52); Hemoglobin 11.7 g/dl (14.0-18.0); Mean Corpuscular HGB Conc 35 g/dl (31-36); Mean Corpuscular Hemoglobin 30 pg (27-31); Mean Corpuscular Volume 86 fL (80-94); Mean Platelet Volume 8 um3 (7.4-10.4); Red Blood Count 3.89 10^6/ul (4.0-5.4); Red Cell Distribution Width 13 % (10.5-15); White Blood Count 7.7 10^3/ul (3.5-10.8)
[2017-04-07 05:07] LABS: BUN/Creatinine Ratio 14.3 (8-20); Calcium 8.6 mg/dL (8.6-10.3); EGFR Non-African American 63.7 (>60)
[2017-04-07] MEDS: Heparin VIAL(*) 5000 UNITS/ML VIAL (FIVE THOUSAND) SUBCUT SCH (05:54)
[2017-04-07] MEDS: Aspirin Low Dose CHEW TAB* 81 MG PO SCH (08:18)
[2017-04-07] MEDS: Atorvastatin* 40 MG TAB PO SCH (08:19)
[2017-04-07] MEDS: buPROPion SR TAB.SR* 100 MG PO SCH (08:20)
[2017-04-07] MEDS: Carvedilol TAB* 6.25 MG PO SCH (08:21)
[2017-04-07] MEDS: Docusate CAP* 100 MG PO SCH (08:22)
[2017-04-07] MEDS: Finasteride TAB* 5 MG PO SCH (08:24)
[2017-04-07] MEDS: Ferrous Gluconate TAB* 324 MG TAB PO SCH (08:24)
[2017-04-07] MEDS: FLUoxetine CAP* 20 MG PO SCH (08:25)
[2017-04-07] MEDS: Hydrochlorothiazide TAB* 25 MG PO SCH (08:26)
[2017-04-07] MEDS: Lisinopril TAB* 10 MG PO SCH (08:28)
[2017-04-07] MEDS: Tamsulosin CAP* 0.4 MG PO SCH (08:29)
[2017-04-07] MEDS: Potassium Chlor TAB* 20 MEQ TAB.ER PO SCH (08:29)
[2017-04-07 09:12] VITALS: BP 171/78
[2017-04-07] MEDS: Levofloxacin 500 MG IVPREMIX(* 500 MG/100 ML BAG IVPB SCH (10:37)
--- NOTE | 2017-04-07 23:48 | DS ---
CC: Dr. Neville; [facility], ; [facility], Fax # [phone] DISCHARGE SUMMARY: DATE OF ADMISSION: 04/03/17 DATE OF DISCHARGE: 04/07/17 PRIMARY CARE PHYSICIAN: Dr. Neville, [facility] in [place], phone number is [phone]. PRINCIPAL DIAGNOSES: 1. Bilateral pyelonephritis. 2. Acute cystitis. 3. Sepsis. SECONDARY DIAGNOSES: 1. Acute urinary retention. 2. Benign prostatic hypertrophy. 3. Coronary artery disease. 4. Hypertension. 5. History of transient ischemic attack. 6. History of obstructive sleep apnea. 7. History of hypertension. 8. History of depression and anxiety. PHYSICAL EXAMINATION: 04/07/17, vital signs: Temperature 98.1, respiratory rate 20, pulse ox 97% on room air, blood pressure 171/78, heart rate 65. General: Alert, well-appearing man, in no distress. HEENT: Pupils equal, round , reactive to light. No nystagmus. Moist mucosa. No JVP. Thyroid nonpalpable. No cervical lymphadenopathy. Chest: Regular rate and rhythm. No murmurs. PMI nondisplaced. Lungs clear bilaterally. Abdomen: No CVA tenderness. Soft, nontender, nondistended. Bowel sounds normoactive. Bhatti catheter in place, draining pale, pink urine. Extremities: Pulses 2+, no edema , no ecchymosis. Neurologic: Alert and oriented x3. DIAGNOSTIC STUDIES/LAB DATA: Pertinent labs on this admission: UA on 04/03/17 showed 2+ protein, 2+ blood, positive leukocyte esterase, 2+ wbc's, 3+ rbc's, and 1+ bacteria. Troponin trended from 0.04 to 0.08 and 0.07. White blood cells on the day of admission were 7.7 and hemoglobin was 11.7. Pertinent imaging from this admission included a CT abdomen and pelvis on 04/03/17, which showed trace left pleural effusion, findings suspicious for cystitis and bilateral pyelonephritis, mild hepatosplenomegaly. REVIEW OF SYSTEMS: 04/07/17, was negative for abdominal pain, nausea, vomiting , fevers, chills. The remaining 14-point review of systems was negative. HOSPITAL COURSE BY PROBLEM: 1. Sepsis secondary to bilateral pyelonephritis and acute cystitis. On admission, he was initiated on ceftriaxone given his urinary complaints, positive UA, and propensity for urinary source and his blood culture returned positive for Enterococcus faecalis and he was switched to IV Levaquin. Infectious Diseases was consulted, who agreed with the choice of levofloxacin and recommended continuing p.o. levofloxacin for 4 weeks total at discharge. The case was discussed with Urology, who recommended continuing the Bhatti catheter for the duration of the antibiotic course. His blood cultures remained negative. He will need close followup with Urology and I am faxing a copy of this discharge summary to [facility] in [place]. 2. Troponin elevation. At admission, his troponin peaked at 0.08, this was associated with lateral ST depressions; however, no chest pain at any time. He also reports good exercise tolerance and is able to be active outside, working in the yard. He is able to climb steps and walks several blocks without ever getting chest pain; however, given his history of coronary artery disease, status post percutaneous intervention 4 years ago, I am recommending that he follow up with his offset assistant press operator for consideration of an outpatient stress test after his infection is fully treated. 3. Benign prostatic hypertrophy. This is suspected to be the source of his urinary retention. On the day of admission, his Bhatti catheter drained 2 L. He was continued on finasteride and Flomax and will be continued on this upon discharge and will follow up with Urology with his Bhatti catheter. 4. Coronary artery disease. As stated above, he has known coronary disease and is on a statin and beta-beronica; however, does not take a baby aspirin, he is not sure why. I am starting aspirin 81 mg daily at discharge. 5. Hypertension. He is being continued on Coreg, lisinopril, and hydrochlorothiazide. These were not changed during this admission. 6. Disposition. The patient is being discharged home with a Bhatti catheter and 4 weeks of p.o. Levaquin. He will follow up with his offset assistant press operator on at 9:30 a.m. and I have discussed the case with his Urology office, who will call him with a followup appointment within the next 1 to 2 weeks. TIME SPENT: Greater than 60 minutes were spent on this discharge summary, greater than half of that time was spent [id number] with the patient and his . [id number]/[facility] #: [id number] ELKE
== END 2017-04-07 13:45 | disposition home or self-care (01) | DRG 872 ==
LOC: ED 08:26 → MEDTELE 11:37
PROVIDERS: ADMIT Internal Medicine; ATTEND Internal Medicine
DX: A41.9 Sepsis, unspecified organism (principal); N17.9 Acute kidney failure, unspecified; I24.8 Other forms of acute ischemic heart disease; I11.9 Hypertensive heart disease without heart failure; N12 Tubulo-interstitial nephritis, not specified as acute or chronic; N30.00 Acute cystitis without hematuria; B95.2 Enterococcus as the cause of diseases classified elsewhere; E78.5 Hyperlipidemia, unspecified; I25.10 Atherosclerotic heart disease of native coronary artery without angina pectoris; G47.33 Obstructive sleep apnea (adult) (pediatric); F32.9 Major depressive disorder, single episode, unspecified; F41.9 Anxiety disorder, unspecified; R74.8 Abnormal levels of other serum enzymes; N40.1 Benign prostatic hyperplasia with lower urinary tract symptoms; I34.0 Nonrheumatic mitral (valve) insufficiency; R33.8 Other retention of urine; Z95.5 Presence of coronary angioplasty implant and graft; Z79.899 Other long term (current) drug therapy; Z84.89 Family history of other specified conditions; Z87.891 Personal history of nicotine dependence; Z86.73 Personal history of transient ischemic attack (TIA), and cerebral infarction without residual deficits
CPT/HCPCS: 36415; 71010; 74177; 80048; 80053; 81003; 81015; 83605; 84484; 85025; 85610; 87040; 87077; 87086; 87186; 87502; 93005; 93306; 94640; 94660; 94760; 96360; 99213; A9270-GY; G0463; J0290; J0692; J0696; J1580; J1644; J1956; J2405; Q9967

== ENCOUNTER 2017-09-15 22:34 | Observation (INO) | payer MEDICARE, OTHER ==
[2017-09-15] MEDS ORDERED: NS 0.9% 1000 ML* 1,000 ML IV ONE (22:56)
[2017-09-15 23:49] LABS: ABS Basophils 0 10^3/ul (0-0.2); ABS Eosinophils 0 10^3/ul (0-0.6); ABS Lymphocytes 0.4 10^3/ul (1.0-4.8); ABS Monocytes 0.4 10^3/ul (0-0.8); ABS Neutrophils 7.1 10^3/ul (1.5-7.7); ABS Nucleated RBC 0 10^3/ul; Eosinophil % 0.1 % (0-6); Hematocrit 34 % (42-52); Hemoglobin 11.5 g/dl (14.0-18.0); Lymphocyte % 4.9 % (25-47); Mean Corpuscular HGB Conc 34 g/dl (31-36); Mean Corpuscular Hemoglobin 29 pg (27-31); Mean Corpuscular Volume 86 fL (80-94); Mean Platelet Volume 9 um3 (7.4-10.4); Nucleated Red Blood Cells % 0; Platelet Count 109 10^3/ul (150-450); Red Blood Count 3.91 10^6/ul (4.0-5.4); Red Cell Distribution Width 14 % (10.5-15); White Blood Count 7.8 10^3/ul (3.5-10.8)
[2017-09-15 23:55] LABS: INR 1.15 (0.77-1.02)
[2017-09-16 00:05] LABS: EGFR Non-African American 27.2 (>60)
[2017-09-16] MEDS ORDERED: NS 0.9% 1000 ML* 1,000 ML IV ONE (00:40)
[2017-09-16 01:04] LABS: Urine Appearance Cloudy; Urine Color Red
[2017-09-16] MEDS ORDERED: Levofloxacin 750 MG IVPREMIX(* 750 MG/150 ML BAG IVPB ONE (01:09)
[2017-09-16] MEDS ORDERED: Levofloxacin 500 MG IVPREMIX(* 500 MG/100 ML BAG IVPB ONE (01:10)
--- NOTE | 2017-09-16 01:24 | ED ---
Jim Allan Rebecca, scribed for Tish Stephens MD on 09/15/17 at 2245 . Syncope/Near Syncope - HPI Summary HPI Summary: Pt is a 76 y/o M BIBA who presents to ED s/p syncopal episode. Yesterday, the pt had a TURP procedure done for which he stayed the night and was discharged today at about 1600. At about 1600 he began experiencing dizziness while laying down with chills and diaphoresis with a fever of 100 at home. Then, this evening , upon standing up from being on the toilet, the pt had an episode of LOC. Sx spontaneously resolved and he is unsure of any head trauma. While en route, the pt vomited once. Additionally c/o mild abdominal pain and feeling "a bit fuzzy in the head." Denies SOB, CP, cough. Took 2 tabs OTC Ibuprofen at 1700 tonight. Confirms he had a catheter which was removed today at noon and he has urinated since. PMHx sepsis in March 2017. 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 - Allergies/Home Medications Allergies/Adverse Reactions: Allergies Allergy/AdvReac Type Severity Reaction Status Date / Time No Known Allergies Allergy Verified 09/15/17 23:31 Home Medications: Home Medications Doxepin HCl 100 mg PO BEDTIME PRN 09/15/17 [History Confirmed 09/15/17] PMH/Surg Hx/FS Hx/Imm Hx Endocrine/Hematology History: Reports: Hx Anticoagulant Therapy - PLAVIX Denies: Hx Diabetes Cardiovascular History: Reports: Hx Hypertension Respiratory History: Denies: Hx Asthma History: Reports: Hx Benign Prostatic Hyperplasia Denies: Hx Renal Disease Sensory History: Reports: Hx Contacts or Glasses - reading only, Hx Hearing Problem Denies: Hx Hearing Aid Opthamlomology History: Reports: Hx Contacts or Glasses - reading only - Surgical History Surgery Procedure, Year, and Place: stent. 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 GENERAL: ~Patient is a well-developed and nourished male who is lying comfortable in the stretcher. Patient is not in any acute respiratory distress. Patient is somewhat lethargic. HEAD AND FACE: No signs of trauma. No ecchymosis, hematomas or skull depressions. No sinus tenderness. EYES: PERRLA, EOMI x 2, No injected conjunctiva, no nystagmus. EARS: Hearing grossly intact. Ear canals and tympanic membranes are within normal limits. MOUTH: Oropharynx within normal limits. NECK: Supple, trachea is midline, no adenopathy, no JVD, no carotid bruit, no c- spine tenderness, neck with full ROM. CHEST: Symmetric, no tenderness at palpation LUNGS: Clear to auscultation bilaterally. No wheezing or crackles. CVS: Regular rate and rhythm, S1 and S2 present, no gallops appreciated. 2/6 systolic murmur over the left sternal border. ABDOMEN: Soft, non-tender. No signs of distention. No rebound no guarding, and no masses palpated. Bowel sounds are normal. EXTREMITIES: FROM in all major joints, no edema, no cyanosis or clubbing. NEURO: Alert and oriented x 3. No acute neurological deficits. Speech is normal and follows commands. SKIN: Dry and warm Triage Information Reviewed: Yes Vital Signs On Initial Exam: Initial Vitals Temp Pulse Resp BP Pulse Ox 98.3 F 67 16 149/66 96 09/15/17 22:36 09/15/17 22:36 09/15/17 22:36 09/15/17 22:36 09/15/17 22:36 Vital Signs Reviewed: Yes Diagnostics - Vital Signs Vital Signs Temp Pulse Resp BP Pulse Ox 09/15/17 22:36 98.3 F 67 16 149/66 96 - Laboratory Result Diagrams: 09/15/17 23:27 09/15/17 23:27 Lab Statement: Any lab studies that have been ordered have been reviewed, and results considered in the medical decision making process. - Radiology CXR Xray Interpretation: No Acute Changes - Pending official radiology report. Radiology Interpretation Completed By: ED Physician - EKG 6 Cardiac Rate: NL - 66 bpm EKG Rhythm: Sinus Rhythm EKG Interpretation: Normal interval. Normal axis. No ischemic changes. Course/Dx Assessment/Plan: Pt is a 76 y/o M BIBA who presents to ED s/p syncopal episode. Yesterday, the pt had a TURP procedure done for which he stayed the night and was discharged today at about 1600. At about 1600 he began experiencing dizziness while laying down with chills and diaphoresis with a fever of 100 at home. Then, this evening, upon standing up from being on the toilet, the pt had an episode of LOC. Sx spontaneously resolved and he is unsure of any head trauma. While en route, the pt vomited once. Additionally c/o mild abdominal pain and feeling "a bit fuzzy in the head." Denies SOB, CP, cough. Took 2 tabs OTC Ibuprofen at 1700 tonight. Confirms he had a catheter which was removed today at noon and he has urinated since. PMHx sepsis in March 2017. CXR reveals no acute findings, as read by ED physician. EKG is sinus rhythm with no ischemic changes. Troponin is 0.07. UA was done. In the ED course, the pt received fluids and Levaquin. Discussed care of pt with Dr. Garcia who accepts pt for admission. Pt will be admitted with Dx of dehydration, syncope, UTI, and renal insufficiency. He understands and agrees. - Diagnoses Provider Diagnoses: Dehydration, Syncope, UTI (urinary tract infection), Renal insufficiency Discharge - Discharge Plan Condition: Fair Disposition: ADMITTED TO [facility] Referrals: Ata Neville MD [Primary Care Provider] - The documentation as recorded by the Jim olivier Rebecca accurately reflects the service I personally performed and the decisions made by me, Tish Stephens MD.
[2017-09-16] MEDS ORDERED: Ondansetron INJ* 2 MG/ML VIAL IV PRN (01:32)
[2017-09-16] MEDS ORDERED: Acetaminophen TAB* 325 MG PO PRN (01:32)
[2017-09-16] MEDS ORDERED: CMCS: Melatonin (NF) 3 MG TAB PO PRN (01:32)
[2017-09-16] MEDS ORDERED: Albuterol 2.5 MG/3 ML NEB.SOL* (0.083%) INH PRN (01:32)
[2017-09-16] MEDS ORDERED: LORazepam TAB(*) 0.5 MG PO PRN (01:35)
[2017-09-16] MEDS ORDERED: Doxepin (NF) 25 MG CAP PO PRN (01:35)
[2017-09-16] MEDS: NS 0.9% 1000 ML* 1,000 ML IV SCH ×3 (03:12→19:34)
--- NOTE | 2017-09-16 04:58 | HP ---
H&P (Free Text) History and Physical: PCP: Junior Neville MD Date/Time: 09/06/2017 0115 CC: syncope HPI: Mr Mccann is a 76YO male HX CAD/NSTEMI/stent, HTN, HLD, TIA who underwent TURP at the [facility] 09/14/2017. He was discharged home yesterday, 09/15. Upon arrival home he was quite fatigued and went straight to bed. He has had very poor PO intake since being NPO Thursday night preoperatively. While in bed he developed sweats and chills. He went to use the restroom without any urine or bowel movement occurring. When he went to stand, the next thing he knew he was on the floor. His reports he was out for 2-3 minutes. He is uncertain as to whether he hit his head. He denies other prodromal symptoms, specifically chest pain, SOB, palpitations, N/V, loss of continence, or other issues. His vitals were orthostatic in the ED and he felt better after 2L. However, he has a significant ROSSI for which observation was requested. Of note, he was admitted to [facility] in Mar 2017 with enteroccal pylonephritis w/ sepsis. PMedHx CAD/NSTEMI/stent HTN HLD TIA CORBIN BPH s/p TURP as above anxiety/depression Ambulatory Orders Atorvastatin* [Lipitor*] 80 mg PO DAILY 10/06/12 Cholecalciferol TAB* [Vitamin D TAB*] 2,000 unit PO DAILY 10/06/12 Tamsulosin CAP* [Flomax CAP*] 0.8 mg PO DAILY 10/06/12 Carvedilol TAB* [Coreg TAB*] 12.5 mg PO BID 04/03/17 Cyanocobalamin INJ * [Vitamin B12 INJ *] 1,000 mcg IM DAILY 04/03/17 Diclofenac Sodium EC TAB* [Voltaren EC TAB*] 50 mg PO TID PRN 04/03/17 Docusate CAP* [Colace Cap*] 100 mg PO DAILY 04/03/17 FLUoxetine CAP* [Prozac CAP*] 40 mg PO DAILY 04/03/17 Ferrous Gluconate TAB* [Fergon TAB*] 325 mg PO DAILY 04/03/17 Finasteride TAB* [Proscar TAB*] 5 mg PO DAILY 04/03/17 Fluocinonide 0.05% CREAM(NF) 1 applic TOPICAL BID PRN 04/03/17 LORazepam TAB(*) [Ativan 0.5 MG TAB (*)] 0.25 mg PO BID PRN 04/03/17 Lisinopril/HCTZ 20/12.5(NF) [Zestoretic 2012.5(NF)] 2 tab PO DAILY 04/03/17 Miconazole Nitrate [Micro-Guard] 2 % TOPICAL BID 04/03/17 Potassium Chlor TAB* [Potassium Chlor TAB 20 MEQ*] 20 meq PO BID 04/03/17 buPROPion SR TAB* [Wellbutrin SR TAB*] 100 mg PO BID 04/03/17 Aspirin Low Dose CHEW TAB* [Aspirin Low Dose TAB*] 81 mg PO DAILY #30 tab.chew 04/07/17 Doxepin HCl 100 mg PO BEDTIME PRN 09/15/17 Allergies No Known Allergies Allergy (Verified 09/15/17 23:31) PSurgHx TURP 09/14/2017 R knee arthroscopy nasal septal repair SocHx: quit smoking >45 years ago, occasional ETOH, no recreational drugs; lives with his ; 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[employer]; 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 FamHx: Mother: AAA; Father: multiple myeloma ROS: as above, otherwise reviewed and all were negative vitals: Vital Signs Temp 36.5 C 09/16/17 02:58 Pulse 71 09/16/17 02:58 Resp 17 09/16/17 02:58 BP 125/61 09/16/17 02:58 Pulse Ox 96 09/16/17 02:58 Intake & Output 09/15/17 09/15/17 09/16/17 11:59 23:59 11:59 Intake Total 1999 Output Total 350 Balance 1650 Weight 77.111 kg 80.694 kg Intake: IV Fluids 1999 Output: Urine 350 Constitutional: NAD, normally developed, overweight white male HEENM: atraumatic; sclera/conjunctiva: anicteric/clear; hearing: clinically intact; oropharynx: clear, mucosa tacky Neck: soft tissue: non-tender; thyroid: normal Pulmonary: clear to auscultation bilaterally, good aeration, no accessory muscle use CV: RR/RR, normal S1S2, no carotid bruit, no jugular venous distention, 2+ B DP/ PT, no edema Abdominal: soft, non-distended, non-tender, no rebound/guarding/rigidity, normoactive bowel sounds, no hepatosplenomegaly or masses, no costovertebral angle tenderness Musculoskeletal: general: grossly intact, no tenderness w/ palpation Integumental: normal appearance and texture Psychiatric orientation: AA&O to PPS affect: calm mood: cooperative eye contact: fair content: reliable responses: timely insight: good Testing: Lab Results 09/15/17 09/15/17 09/15/17 Range/Units 23:27 23:27 23:27 WBC 7.8 (3.5-10.8) 10^3/ul RBC 3.91 L (4.0-5.4) 10^6/ul Hgb 11.5 L (14.0-18.0) g/dl Hct 34 L (42-52) % MCV 86 (80-94) fL MCH 29 (27-31) pg MCHC 34 (31-36) g/dl RDW 14 (10.5-15) % Plt Count 109 L (150-450) 10^3/ul MPV 9 (7.4-10.4) um3 Neut % (Auto) 90.3 H (38-83) % Lymph % (Auto) 4.9 L (25-47) % Clarke % (Auto) 4.5 (0-7) % Eos % (Auto) 0.1 (0-6) % Baso % (Auto) 0.2 (0-2) % Absolute Neuts (auto) 7.1 (1.5-7.7) 10^3/ul Absolute Lymphs (auto) 0.4 L (1.0-4.8) 10^3/ul Absolute Monos (auto) 0.4 (0-0.8) 10^3/ul Absolute Eos (auto) 0 (0-0.6) 10^3/ul Absolute Basos (auto) 0 (0-0.2) 10^3/ul Absolute Nucleated RBC 0 10^3/ul Nucleated RBC % 0 INR (Anticoag Therapy) 1.15 H (0.77-1.02) APTT 28.3 (26.0-36.3) seconds Sodium 131 L (133-145) mmol/L Potassium 3.5 (3.5-5.0) mmol/L Chloride 98 L (101-111) mmol/L Carbon Dioxide 25 (22-32) mmol/L Anion Gap 8 (2-11) mmol/L BUN 27 H (6-24) mg/dL Creatinine 2.34 H (0.67-1.17) mg/dL Est GFR ( Amer) 35.0 (>60) Est GFR (Non-Af Amer) 27.2 (>60) BUN/Creatinine Ratio 11.5 (8-20) Glucose 120 H (70-100) mg/dL Lactic Acid (0.5-2.0) mmol/L Calcium 8.4 L (8.6-10.3) mg/dL Total Bilirubin 0.80 (0.2-1.0) mg/dL AST 22 (13-39) U/L ALT 15 (7-52) U/L Alkaline Phosphatase 47 (34-104) U/L Troponin I 0.07 H* (<0.04) ng/mL C-Reactive Protein 117.14 H (< 5.00) mg/L Total Protein 5.7 L (6.4-8.9) g/dL Albumin 3.1 L (3.2-5.2) g/dL Globulin 2.6 (2-4) g/dL Albumin/Globulin Ratio 1.2 (1-3) Urine Color Urine Appearance Urine pH Ur Specific [place] Urine Protein Urine Ketones Urine Blood Urine Nitrate Urine Bilirubin Urine Urobilinogen Ur Leukocyte Esterase Urine WBC (Auto) (Absent) Urine RBC (Auto) (Absent) Urine Bacteria (Absent) Urinalysis Comment Urine Glucose Urine Ascorbic Acid 09/15/17 09/16/17 Range/Units 23:31 00:45 WBC (3.5-10.8) 10^3/ul RBC (4.0-5.4) 10^6/ul Hgb (14.0-18.0) g/dl Hct (42-52) % MCV (80-94) fL MCH (27-31) pg MCHC (31-36) g/dl RDW (10.5-15) % Plt Count (150-450) 10^3/ul MPV (7.4-10.4) um3 Neut % (Auto) (38-83) % Lymph % (Auto) (25-47) % Clarke % (Auto) (0-7) % Eos % (Auto) (0-6) % Baso % (Auto) (0-2) % Absolute Neuts (auto) (1.5-7.7) 10^3/ul Absolute Lymphs (auto) (1.0-4.8) 10^3/ul Absolute Monos (auto) (0-0.8) 10^3/ul Absolute Eos (auto) (0-0.6) 10^3/ul Absolute Basos (auto) (0-0.2) 10^3/ul Absolute Nucleated RBC 10^3/ul Nucleated RBC % INR (Anticoag Therapy) (0.77-1.02) APTT (26.0-36.3) seconds Sodium (133-145) mmol/L Potassium (3.5-5.0) mmol/L Chloride (101-111) mmol/L Carbon Dioxide (22-32) mmol/L Anion Gap (2-11) mmol/L BUN (6-24) mg/dL Creatinine (0.67-1.17) mg/dL Est GFR ( Amer) (>60) Est GFR (Non-Af Amer) (>60) BUN/Creatinine Ratio (8-20) Glucose (70-100) mg/dL Lactic Acid 0.9 (0.5-2.0) mmol/L Calcium (8.6-10.3) mg/dL Total Bilirubin (0.2-1.0) mg/dL AST (13-39) U/L ALT (7-52) U/L Alkaline Phosphatase (34-104) U/L Troponin I (<0.04) ng/mL C-Reactive Protein (< 5.00) mg/L Total Protein (6.4-8.9) g/dL Albumin (3.2-5.2) g/dL Globulin (2-4) g/dL Albumin/Globulin Ratio (1-3) Urine Color Red A Urine Appearance Cloudy Urine pH Not Reportable Ur Specific [place] Not Reportable Urine Protein Not Reportable Urine Ketones Not Reportable Urine Blood Not Reportable Urine Nitrate Not Reportable Urine Bilirubin Not Reportable Urine Urobilinogen Not Reportable Ur Leukocyte Esterase Not Reportable Urine WBC (Auto) 3+(>20/hpf) A (Absent) Urine RBC (Auto) 3+(>10/hpf) A (Absent) Urine Bacteria Absent (Absent) Urinalysis Comment Urine Glucose Not Reportable Urine Ascorbic Acid Not Reportable ECG, personally reviewed: sinus rhythm rate 66, no ischemia, poor R-wave progression CXR, personally reviewed: no acute process Impression: 76M presenting POD 2 TURP performed at the [facility] who experienced a syncopal episode with finding of orthostasis & significant ROSSI upon arrival home after discharge DIAGNOSIS & PLAN Primary syncope & ROSSI 2nd suspected pre-renal orthostasis : telemetry : IVFs, trend renal function : given 500mg IV levofloxacin in ED, will hold further ABX & trend WBC/ temperature curves : blood & urine CXs : supportive care : ECHO reviewed & up to date : PT evaluation : obtain records from [facility] elevated troponin : baseline Secondary CAD/NSTEMI/stent : continue carvedilol & aspirin HTN : hold lisinopril/HCTZ in setting of orthostasis : continue carvedilol HLD : continue atorvastatin TIA : continue aspirin BPH : s/p TURP as above : continue finasteride & tamsulosin anxiety/depression : continue fluoxetine, bupropion, & lorazepam Admission Rational: observation for syncope work up DVTp: SCDs, no anticoagulation in setting of recent TURP w/ ongoing hematuria Code Status: full HCP:
[2017-09-16 05:39] LABS: EGFR Non-African American 36.9 (>60)
[2017-09-16 05:50] LABS: Hematocrit 31 % (42-52); Hemoglobin 10.6 g/dl (14.0-18.0); Mean Corpuscular HGB Conc 34 g/dl (31-36); Mean Corpuscular Hemoglobin 30 pg (27-31); Mean Corpuscular Volume 86 fL (80-94); Mean Platelet Volume 9 um3 (7.4-10.4); Platelet Count 93 10^3/ul (150-450); Red Blood Count 3.58 10^6/ul (4.0-5.4); Red Cell Distribution Width 13 % (10.5-15); White Blood Count 6.7 10^3/ul (3.5-10.8)
[2017-09-16] MEDS: Omeprazole CAP* 20 MG PO SCH (05:54)
--- NOTE | 2017-09-16 08:05 | RAD ---
Indication: Syncope. Comparison: April 03, [address] and chest radiograph. Technique: Upright AP 2349 hours Report: Unchanged mild cardiomegaly. Unremarkable central pulmonary vasculature. Mildly tortuous descending thoracic aorta. Clear lungs and pleural spaces. Negative for pneumothorax. IMPRESSION: Mild cardiomegaly. No acute cardiopulmonary process evident.
[2017-09-16] MEDS ORDERED: Levofloxacin TAB* 500 MG PO SCH ×2 (09:00→21:00)
[2017-09-16] MEDS ORDERED: Docusate CAP* 100 MG PO SCH (09:00)
[2017-09-16] MEDS: Tamsulosin CAP* 0.4 MG PO SCH (09:01)
[2017-09-16] MEDS: Finasteride TAB* 5 MG PO SCH (09:02)
[2017-09-16] MEDS: Docusate CAP* 100 MG PO SCH (09:02)
[2017-09-16] MEDS: Carvedilol TAB* 6.25 MG PO SCH ×2 (09:02→20:56)
[2017-09-16] MEDS: buPROPion SR TAB.SR* 100 MG PO SCH ×2 (09:03→20:56)
[2017-09-16] MEDS: Atorvastatin* 80 MG TAB PO SCH (09:03)
[2017-09-16] MEDS: FLUoxetine CAP* 20 MG PO SCH (09:03)
[2017-09-16] MEDS: Aspirin Low Dose CHEW TAB* 81 MG PO SCH (09:03)
[2017-09-16] MEDS ORDERED: Magnesium Sulf 4 GM/100 ML IV* 4,000 MG/100 ML BAG IVPB ONE (14:38)
[2017-09-16] MEDS: Potassium Chlor TAB* 20 MEQ TAB.ER PO SCH ×2 (14:57→16:23)
--- NOTE | 2017-09-16 15:15 | PN ---
Hospitalist Progress Note Date of Service: 09/16/17 Pt seen and examined. 76 yo male PMH CVA, systolic and diastolic CHF, BPH now s/ p TURP 09/14/17 at [place] p/w syncope, dehydration, ROSSI. 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 Baseline 1.1-1.4 recently. urine getting less red. Eating well. barely nausea. Records obtained from [place]. Had MRI Brain just on 09/11/17 for headaches and slightly unstable gait. Will try to get records. Did have ECHO 09/03 with EF 45%, 2+ AI, 1+ MR, diastolic dysfunction. Follows with Dr. Simpson( sp?) Cardiology in [place]. PCP Dr. Neville ([place], [place]). Did well with PT
[2017-09-16] MEDS ORDERED: Heparin VIAL(*) 5000 UNITS/ML VIAL (FIVE THOUSAND) SUBCUT SCH (22:00)
[2017-09-17] MEDS: NS 0.9% 1000 ML* 1,000 ML IV SCH (03:30)
[2017-09-17] MEDS: Omeprazole CAP* 20 MG PO SCH ×2 (05:51→08:12)
[2017-09-17 06:20] LABS: EGFR Non-African American 65.1 (>60)
[2017-09-17] MEDS: buPROPion SR TAB.SR* 100 MG PO SCH (08:09)
[2017-09-17] MEDS: Aspirin Low Dose CHEW TAB* 81 MG PO SCH (08:09)
[2017-09-17] MEDS: Atorvastatin* 80 MG TAB PO SCH (08:09)
[2017-09-17] MEDS: Docusate CAP* 100 MG PO SCH (08:10)
[2017-09-17] MEDS: Carvedilol TAB* 6.25 MG PO SCH (08:10)
[2017-09-17] MEDS: Finasteride TAB* 5 MG PO SCH (08:10)
[2017-09-17] MEDS: FLUoxetine CAP* 20 MG PO SCH (08:10)
[2017-09-17] MEDS: Tamsulosin CAP* 0.4 MG PO SCH (08:11)
[2017-09-17] MEDS ORDERED: Potassium Chlor TAB* 20 MEQ TAB.ER PO ONE (10:07)
[2017-09-17] MEDS ORDERED: Magnesium Oxide TAB* 400 MG PO ONE (10:08)
[2017-09-17 11:41] VITALS: BP 155/68
--- NOTE | 2017-09-18 06:36 | DS ---
DISCHARGE SUMMARY: DATE OF ADMISSION: 09/16/17 DATE OF DISCHARGE: 09/17/17 ADMITTING PROVIDER: Sal Garcia MD PRIMARY CARE PROVIDER: Ata Neville MD ATTENDING PHYSICIAN: Zachary Rowe MD CHIEF COMPLAINT: Syncope. PRINCIPAL DIAGNOSIS: Dehydration and acute kidney injury in the setting of recent poor p.o. intake, hematuria after TURP procedure day prior. HISTORY OF PRESENT ILLNESS AND HOSPITAL COURSE: Mr. Mccann is a 76-year-old male with a past medical history of CAD, NSTEMI, stent, hypertension, hyperlipidemia, TIA, BPH, who had been required to straight cath during last year, who underwent a TURP on September 14, two days prior to admission, at [facility], who was discharged. On day of admission, had been having some poor p.o. intake for several days since September 13, who was having hematuria after the TURP. He was in the restroom and when he stood up, he lost conscious and fell to the floor, found by his , and seemed to be out of it for 2 to 3 minutes. He was taken by EMS to [facility] Room where he was found to have evidence of acute kidney injury with a creatinine of 2.34 from his baseline between 1.1 and 1.4. He was afebrile, hemodynamically stable without tachycardia or hypotension. He was given IV fluids with quick correction of his creatinine to 1.8 later the same day and then 1.1 on day of discharge. His potassium and magnesium were repleted for lows of 3.2 and 1.4 respectively. He did have a troponin of 0.07 on admission, down to 0.05 on next 2 checks. He denied any chest pain with shortness of breath throughout the admission. Records were obtained from the [facility] and he was found to have had an echocardiogram on September 03 with ejection fraction of 45%, restrictive diastolic function, and 2+ aortic insufficiency. He follows with , Cardiology. Of note, he had just recently had an MRI a week prior to admission for headaches and some feeling of gait instability and was referred for Outpatient Neurology followup for unknown abnormality per his report (he just got a call the day of discharge), he should follow up with this Neurology appointment. His nausea has resolved. He is being discharged with p.r.n. Zofran as needed and he should see Dr. Neville within 5 days of discharge. His hematuria improved with no visible pink or red-tinge on day of discharge. His admitting hemoglobin was 11.5 and later 10.6. He worked well with physical therapy and was considered stable for home. DISCHARGE MEDICATIONS: Include: 1. Aspirin 81 mg daily. 2. Atorvastatin 80 mg p.o. daily. 3. Wellbutrin 100 mg p.o. b.i.d. 4. Carvedilol 12.5 mg p.o. b.i.d. 5. Docusate 100 mg p.o. daily. 6. Doxepin 100 mg p.o. bedtime p.r.n. for insomnia. 7. Finasteride 5 mg p.o. daily. 8. Fluoxetine 40 mg p.o. daily. 9. Lorazepam 0.25 mg p.o. b.i.d. p.r.n. for anxiety. 10. Tamsulosin 0.8 mg p.o. daily. 11. Cholecalciferol 2000 units p.o. daily. 12. Vitamin B12 1000 mcg IM. 13. Diclofenac 50 mg p.o. t.i.d. 14. Fluocinonide 0.05% cream topical b.i.d. 15. Lisinopril/hydrochlorothiazide (Zestoretic 20/12.5 mg) 2 tabs p.o. daily. 16. Miconazole nitrate (Micro-Guard) 2% powder topical b.i.d. 17. Zofran 4 mg p.o. q.6 hours p.r.n. (new). 18. Potassium chloride 20 mEq p.o. b.i.d. DISCHARGE DIET: Heart healthy, unchanged. ACTIVITY LEVEL: No restrictions. FOLLOWUP: Please follow up with Dr. Ata Neville of the [facility] in [place] within 5 days of discharge along with his arrangement of Neurology appointment through the [facility] and because of his recent MRI results (these are not available to us in the system currently). TIME SPENT: Time spent on discharge was 30 minutes. [id number]/CPS #: [id number] MTDD
== END 2017-09-17 12:00 | disposition home or self-care (01) ==
LOC: ED 22:34 → MED 09-16 01:28
PROVIDERS: ADMIT Hospitalist; ATTEND Internal Medicine
DX: E86.0 Dehydration (principal); R31.9 Hematuria, unspecified; N17.9 Acute kidney failure, unspecified; R55 Syncope and collapse; N39.0 Urinary tract infection, site not specified; N28.9 Disorder of kidney and ureter, unspecified; R50.9 Fever, unspecified; R10.9 Unspecified abdominal pain; I25.10 Atherosclerotic heart disease of native coronary artery without angina pectoris; Z95.5 Presence of coronary angioplasty implant and graft; I10 Essential (primary) hypertension; Z86.73 Personal history of transient ischemic attack (TIA), and cerebral infarction without residual deficits; Z86.59 Personal history of other mental and behavioral disorders; Z90.79 Acquired absence of other genital organ(s)
CPT/HCPCS: 36415; 71045; 80048; 80053; 81003; 83605; 83735; 84484; 85025; 85027; 85610; 85730; 86140; 87040; 87086; 93005; 99284; A9270-GY; G0378; G8978-GP-CH; G8979-GP-CH; G8980-GP-CH; J1956; J3475

== ENCOUNTER 2018-07-08 12:29 | Emergency (ER) | payer MEDICARE ==
[2018-07-08 12:58] VITALS: BP 123/64
--- NOTE | 2018-07-08 13:02 | UC ---
Respiratory Complaint HPI - HPI Summary HPI Summary: 77 yo male presents with sinus pain/pressure/congestion and dry cough for the last 3 weeks. He was visiting out of town in [place] about a week ago and a CXR was done and was normal - per pt. He was dx'd with a viral infection and rx' d cough syrup. He has been taking this with little relief. Denies fever, chills , SOB, chest pain, n/v. - History of Current Complaint Chief Complaint: UCRespiratory Stated Complaint: COUGH, SORE THROAT Time Seen by Provider: 07/08/18 13:02 Hx Obtained From: Patient Onset/Duration: Sudden Onset Severity Initially: Moderate Severity Currently: Moderate Pain Intensity: 8 Pain Scale Used: 0-10 Numeric Character: Cough: Nonproductive - Allergies/Home Medications Allergies/Adverse Reactions: Allergies Allergy/AdvReac Type Severity Reaction Status Date / Time No Known Allergies Allergy Verified 07/08/18 12:58 Home Medications: Home Medications Cyanocobalamin TAB* [Vitamin B12 TAB*] 1,000 mcg PO DAILY 07/08/18 [History Confirmed 07/08/18] PMH/Surg Hx/FS Hx/Imm Hx - Additional Past Medical History Additional PMH: BPh Endocrine History: Dyslipidemia Cardiovascular History: Hypertension Psychological History: Anxiety, Depression Other History Of: Anticoagulant Therapy - PLAVIX - Surgical History Surgical History: Yes Surgery Procedure, Year, and Place: stent cardiac. knee - Family History Known Family History: Positive: Hypertension - Social History Occupation: Retired Lives: With Family Alcohol Use: Rare Substance Use Type: None Smoking Status (MU): Never Smoked Tobacco - Immunization History Most Recent Influenza Vaccination: 2017 Most Recent Pneumonia Vaccination: umknown Review of Systems All Other Systems Reviewed And Are Negative: Yes Constitutional: Positive: Negative Skin: Positive: Negative Eyes: Positive: Negative ENT: Positive: Nasal Discharge, Sinus Congestion, Sinus Pain/Tenderness Respiratory: Positive: Cough Cardiovascular: Positive: Negative Gastrointestinal: Positive: Negative Neurovascular: Positive: Negative Neurological: Positive: Negative Psychological: Positive: Negative Physical Exam - Summary Physical Exam Summary: GENERAL: NAD. WDWN. No pain distress. SKIN: No rashes, sores, lesions, or open wounds. HEENT: Head: AT/NC Eyes: EOM intact. Conjunctiva clear without inflammation or discharge. Ears: Hearing grossly normal. TMs intact, no bulging, erythema, or edema. Nose: Nasal mucosa mildly swollen and erythematous with yellow/ clear discharge. TTP maxillary and frontal sinus. Positive post nasal drip Throat: Posterior oropharynx without exudates, erythema, or tonsillar enlargement. Uvula midline. NECK: Supple. Nontender. No lymphadenopathy. CHEST: CTAB. No r/r/w. No accessory muscle use. Breathing comfortably and in no distress. CV: RRR. Without m/r/g. Pulses intact. NEURO: Alert. PSYCH: Age appropriate behavior. Triage Information Reviewed: Yes Vital Signs: Initial Vital Signs Temp 99.1 F 07/08/18 12:55 Pulse 72 07/08/18 12:55 Resp 18 07/08/18 12:55 BP 123/64 07/08/18 12:55 Pulse Ox 98 07/08/18 12:55 Vital Signs Reviewed: Yes UC Diagnostic Evaluation - Laboratory O2 Sat by Pulse Oximetry: 98 Respiratory Course/Dx - Course Course Of Treatment: Sinusitis. Cough. Given length of symptoms and failure of conservative measures - will tx with anbx. - Differential Dx/Diagnosis Provider Diagnosis: Sinusitis, Cough Discharge - Sign-Out/Discharge Documenting (check all that apply): Patient Departure All imaging exams completed and their final reports reviewed: No Studies - Discharge Plan Condition: Stable Disposition: HOME Prescriptions: Amoxicillin/Clavulanate TAB* [Augmentin TAB 875*] 875 mg PO BID #20 tab Patient Education Materials: Sinusitis (ED) Referrals: Ata Neville MD [Primary Care Provider] - Additional Instructions: If you develop a fever, shortness of breath, chest pain, new or worsening symptoms - please call your PCP or go to the ED. Please try Cepacol cough drops [id number] in addition to your other medications. - Billing Disposition and Condition Condition: STABLE Disposition: Home
== END 2018-07-08 13:29 | disposition home or self-care (01) ==
LOC: UCEAST 12:29
DX: J32.9 Chronic sinusitis, unspecified (principal); R05 Cough; I10 Essential (primary) hypertension
CPT/HCPCS: 99212; G0463

== ENCOUNTER 2019-01-30 15:26 | Emergency (ER) | payer MEDICARE ==
--- NOTE | 2019-01-30 16:57 | ED ---
Head Injury - HPI Summary HPI Summary: The pt is a 78 yr [facility] and [facility] his head beginning 2 hours [employer]. His pain is located at the back of his head and its severity is rated a 6/10. He was hiking by a stream when he slipped and fell, hitting his head on the ground. He denies any YOUNG, numbness, LOC, or neck pain. He has Hx of hearing problems and HTN. He is not taking blood thinners. - History Of Current Complaint Chief Complaint: EDFall Stated Complaint: WALKING IN [place], FELL ON HEAD PER Time Seen by Provider: 01/30/19 16:41 Hx Obtained From: Patient Mechanism Of Injury: Fall From A Standing Position Onset/Duration: Started Hours Ago - two Onset of Pain: Immediate Severity Currently: Moderate Severity Initially: Moderate Pain Intensity: 6 Pain Scale Used: 0-10 Numeric Location of Head Injury: Occipital Aggravating Factor(s): Other: - nothing Alleviating Factor(s): Other: - nothing Associated Signs And Symptoms: Other: - Negative - LOC, neck pain, YOUNG, numbness - Allergies/Home Medications Allergies/Adverse Reactions: Allergies Allergy/AdvReac Type Severity Reaction Status Date / Time No Known Allergies Allergy Verified 01/30/19 16:55 PMH/Surg Hx/FS Hx/Imm Hx Endocrine/Hematology History: Reports: Hx Anticoagulant Therapy - PLAVIX Denies: Hx Diabetes Cardiovascular History: Reports: Hx Hypertension - on meds Respiratory History: Denies: Hx Asthma History: Reports: Hx Benign Prostatic Hyperplasia Denies: Hx Renal Disease Sensory History: Reports: Hx Contacts or Glasses, Hx Hearing Aid, Hx Hearing Problem Opthamlomology History: Reports: Hx Contacts or Glasses - Surgical History Surgical History: Yes Surgery Procedure, Year, and Place: stent cardiac. knee Infectious Disease History: No Infectious Disease History: Denies: Traveled Outside the [place] in Last 30 Days - Family History Known Family History: Positive: Hypertension - Social History Alcohol Use: Rare Hx Substance Use: No Substance Use Type: Reports: None Hx Tobacco Use: No Smoking Status (MU): Never Smoked Tobacco Review of Systems Positive: Other - Negative - Neck pain Neurological: Other - Positive - Head injury secondary to fall; Negative - LOC Negative: Headache, Numbness, Syncope All Other Systems Reviewed And Are Negative: Yes Physical Exam - Summary Physical Exam Summary: Constitutional: Well-developed, Well-nourished, Alert HENT: 3 by 4 cm hematoma to the posterior occiput, Normocephalic. No abrasions/ contusions, Midface stable, No dental trauma, No trismus. Eyes: EOM normal, PERRL Neck: Trachea midline, No stridor, No cervical step off, No posterior cervical spine tenderness Cardio: Rhythm regular, rate normal, Heart sounds normal, Radial pulses are 2+ and symmetric. Pulmonary/Chest wall: Effort normal, Breath sounds normal, (-) Stridor, Equal chest rise, No rib tenderness Abd: Soft, Appearance normal. (-) Distension, (-) Tenderness. Musculoskeletal: No extremity trauma. No TL midline tenderness Neuro: Alert,GCS 15. Strength 5/5 all extremities. Ambulates w steady gait. GCS = 15. Skin: Warm, Dry, Skin intact Triage Information Reviewed: Yes Vital Signs On Initial Exam: Initial Vitals Temp Pulse Resp BP Pulse Ox 98.3 F 71 18 156/89 96 01/30/19 15:31 01/30/19 15:31 01/30/19 15:31 01/30/19 15:31 01/30/19 15:31 Vital Signs Reviewed: Yes - Brooks Coma Scale Best Eye Response: 4 - Spontaneous Best Motor Response: 6 - Obeys Commands Best Verbal Response: 5 - Oriented Coma Scale Total: 15 Diagnostics - Vital Signs Vital Signs Temp Pulse Resp BP Pulse Ox 01/30/19 15:31 98.3 F 71 18 156/89 96 - Laboratory Lab Statement: Any lab studies that have been ordered have been reviewed, and results considered in the medical decision making process. - CT CT Brain CT Interpretation Completed By: Radiologist Summary of CT Findings: IMPRESSION: 1. Overlying the left of midline posterior parietal bone and occiput there is a subcutaneous hematoma but no underlying calvarial fracture or acute intracranial. hemorrhage. 2. Multilevel degenerative changes of the cervical spine without acute fracture or. dislocation. ED physician has reviewed this imaging report. CT Cervical Spine CT Interpretation Completed By: Radiologist Summary of CT Findings: IMPRESSION: 1. Overlying the left of midline posterior parietal bone and occiput there is a subcutaneous hematoma but no underlying calvarial fracture or acute intracranial hemorrhage. 2. Multilevel degenerative changes of the cervical spine without acute fracture or dislocation. ED Physician has reviewed this imaging report. Re-Evaluation - Re-Evaluation First Eval Re-Evaluation Time: 18:14 Comment: Head CT negative, no fractures on C-spine. 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 Exam notable for hematoma to the occiput, check brain CT and C-spine CT. No other signs of trauma - Diagnoses Provider Diagnoses: Fall from ground level, Hematoma Discharge - Sign-Out/Discharge Documenting (check all that apply): Patient Departure - Patient will be discharged home. Patient Received Moderate/Deep Sedation with Procedure: No - Discharge Plan Condition: Stable Disposition: HOME Patient Education Materials: Fall Prevention for Older Adults (ED), Hematoma ( ED) Referrals: Ata Neville MD [Primary Care Provider] - 3 Days Additional Instructions: You were seen in the emergency department for a fall Your head CT did not show any bleeding or broken bones in your neck If any studies were not completed at the time of discharge you will be called with the relevant results. Please follow up with your primary care doctor in next 2-3 days and return to emergency department for worsening or concerning symptoms. - Billing Disposition and Condition Condition: STABLE Disposition: Home - Attestation Statements Document Initiated by Scribe: Yes Documenting Scribe: Clay Brian Provider For Whom Anthony is Documenting (Include Credential): Dr. Milagro Schneider Scribe Attestation: I, Clay Brian, scribed for Dr. Milagro Schneider on 01/30/19 at 2014. Scribe Documentation Reviewed: Yes Provider Attestation: The documentation as recorded by the Clay olivier accurately reflects the service I personally performed and the decisions made by me, Dr. Milagro Schneider Status of Scribe Document: Viewed
[2019-01-30 18:34] VITALS: BP 157/90
== END 2019-01-30 18:34 | disposition home or self-care (01) ==
LOC: ED 15:26
DX: S00.03XA Contusion of scalp, initial encounter (principal); W01.0XXA Fall on same level from slipping, tripping and stumbling without subsequent striking against object, initial encounter; Y93.01 Activity, walking, marching and hiking; Y92.89 Other specified places as the place of occurrence of the external cause; M50.322 Other cervical disc degeneration at C5-C6 level; I10 Essential (primary) hypertension; Z79.01 Long term (current) use of anticoagulants; Z95.5 Presence of coronary angioplasty implant and graft
CPT/HCPCS: 70450; 72125; 99282

== ENCOUNTER 2020-10-08 05:31 | Observation (INO) ==
[2020-10-08] MEDS ORDERED: Buffered Lidocaine 1% SYRIN 1 ml INTRADERM ONE (06:00)
[2020-10-08] MEDS ORDERED: Lactated Ringers 1000 ml BAG 1,000 ML IV SCH (06:00)
[2020-10-08] MEDS ORDERED: ceFAZolin 2 GM PREMIX 2 GM/50 ML BAG ONE (06:11)
[2020-10-08] MEDS ORDERED: fentaNYL 100 mcg/2 ml 50 MCG/ML VIAL ONE ×2 (06:52→07:17)
[2020-10-08] MEDS ORDERED: Midazolam 2 mg/2 ml VIAL 1 mg/ml 2 ml VIAL (2 mg) ONE (06:52)
[2020-10-08] MEDS ORDERED: Dexmedetomidine 200 mcg/2 ml 2 ml VIAL (200 mcg) ONE (06:52)
[2020-10-08] MEDS ORDERED: Vancomycin 1,000 MG VIAL ONE (07:06)
[2020-10-08] MEDS ORDERED: Midazolam 5 mg/5 ml VIAL 1 mg/ml 5 ml VIAL (5 mg) ONE (07:17)
[2020-10-08] MEDS ORDERED: Ropivacaine 5 MG/ML 20 ML VIAL 0.5% (100 MG) ONE (07:20)
[2020-10-08] MEDS ORDERED: Dexamethasone IV 4 MG/ML VIAL 1 ml VIAL ONE (07:21)
[2020-10-08] MEDS ORDERED: Ondansetron 4 mg VIAL 2 MG/ML 2 ml VIAL ONE (08:40)
[2020-10-08] MEDS ORDERED: Propofol 10 MG/ML 20 ML BTL ONE ×2 (09:23→10:09)
[2020-10-08] MEDS ORDERED: Ondansetron 4 mg VIAL 2 MG/ML 2 ml VIAL IV PRN ×2 (09:41→10:36)
[2020-10-08] MEDS ORDERED: fentaNYL 100 mcg/2 ml 50 MCG/ML VIAL IV PRN (09:41)
[2020-10-08] MEDS ORDERED: oxyCODONE/Acetamin 5/325 mg TAB PO PRN (09:41)
[2020-10-08] MEDS ORDERED: DiMENhydriNATE IV 50 mg/ml 1 ml VIAL IV PUSH PRN (09:41)
[2020-10-08] MEDS ORDERED: Naloxone 0.4 mg VIAL 0.4 mg/ml 1 ml VIAL IV PRN (09:41)
[2020-10-08] MEDS ORDERED: Acetaminophen IV 1 GM/100ML 100 ML ONE (09:53)
[2020-10-08] MEDS ORDERED: diPHENhydraMINE 25 mg TAB PO PRN (10:36)
[2020-10-08] MEDS ORDERED: Lactulose 30 ml UDC PO PRN (10:36)
[2020-10-08] MEDS ORDERED: Magnesium Hydroxide LIQ 30 ML UDC PO PRN (10:36)
[2020-10-08] MEDS ORDERED: diPHENhydraMINE IV 50 MG/ML 1 ml VIAL (BENADRYL) IV PRN (10:36)
[2020-10-08] MEDS ORDERED: Ondansetron ODT 4 mg TAB 4 MG TAB PO PRN (10:36)
[2020-10-08] MEDS ORDERED: Morphine 2 MG/ML SYRINGE IV PRN (10:36)
[2020-10-08] MEDS ORDERED: Diclofenac Sod EC 25 mg TAB PO PRN (10:55)
[2020-10-08] MEDS ORDERED: FOOD SUPPLEMT LACTOSE REDUCED PO SCH (11:00)
[2020-10-08] MEDS ORDERED: oxyCODONE/Acetamin 5/325 mg TAB ONE (11:11)
[2020-10-08] MEDS: D5W 1/2 NS 1000 ml BAG 1,000 ML IV SCH (13:04)
[2020-10-08] MEDS: ceFAZolin 1 GM ADVAN 1 GM in NS 0.9% 50 ML 50 ML IVPB SCH (16:25)
[2020-10-08] MEDS: Potassium Chlor 20 meq TAB.ER PO SCH (21:39)
[2020-10-08] MEDS: buPROPion SR 100 mg TAB.SR PO SCH (21:39)
[2020-10-08] MEDS: Magnesium Hydroxide LIQ 30 ML UDC PO SCH (21:40)
[2020-10-09] MEDS: D5W 1/2 NS 1000 ml BAG 1,000 ML IV SCH (00:05)
[2020-10-09] MEDS: ceFAZolin 1 GM ADVAN 1 GM in NS 0.9% 50 ML 50 ML IVPB SCH ×2 (01:44→08:21)
[2020-10-09 06:55] LABS: Hematocrit 29 % (42-52); Hemoglobin 9.8 g/dL (14.0-18.0); Mean Platelet Volume 9.4 fL (7.4-10.4); Platelet Count 129 10^3/uL (150-450)
[2020-10-09 07:32] LABS: BUN/Creatinine Ratio 19.1 (8-20); Calcium 8.3 mg/dL (8.6-10.3); EGFR African American 78.1 (>60); EGFR Non-African American 64.6 (>60); Potassium 3.8 mmol/L (3.5-5.0)
[2020-10-09] MEDS: Magnesium Hydroxide LIQ 30 ML UDC PO SCH (08:20)
[2020-10-09] MEDS: Potassium Chlor 20 meq TAB.ER PO SCH (08:21)
[2020-10-09] MEDS: buPROPion SR 100 mg TAB.SR PO SCH (08:21)
[2020-10-09] MEDS ORDERED: Vitamin THERAPEUTIC TAB PO SCH (09:00)
[2020-10-09 11:45] VITALS: BP 126/59
== END 2020-10-09 13:50 | disposition home or self-care (01) ==
LOC: SSU 05:31 → OR 05:31
PROVIDERS: ADMIT Orthopaedic Surgery; ATTEND Orthopaedic Surgery